=== PATIENT | male | born 1980 | race Caucasian/White ===

== ENCOUNTER → 2022-06-25 13:50 | Outpatient (BNVA) | payer MEDICAID, SELFPAY | PROVIDERS: Visit Provider Registered Nurse Neonatal Intensive Care | DX: R50.9 Fever, unspecified (principal) | CPT/HCPCS: 87400 ==

== ENCOUNTER → 2022-09-24 16:36 | Outpatient (BNVA) | payer MEDICAID, SELFPAY | PROVIDERS: Visit Provider Nurse Practitioner | DX: J02.9 Acute pharyngitis, unspecified (principal) | CPT/HCPCS: 87071; 87880 ==

== ENCOUNTER → 2022-10-10 08:16 | Outpatient (BNVA) | payer MEDICAID, SELFPAY | PROVIDERS: PCP Family Medicine Adult Medicine; Visit Provider Family Medicine Adult Medicine | DX: J06.9 Acute upper respiratory infection, unspecified (principal); Z80.42 Family history of malignant neoplasm of prostate; R05.8 Other specified cough | CPT/HCPCS: 80053; 85025; G0103 ==

== ENCOUNTER → 2023-01-30 13:44 | Outpatient (BNVA) | payer MEDICAID, SELFPAY | PROVIDERS: PCP Family Medicine Adult Medicine; Referring Provider Family Medicine Adult Medicine; Visit Provider Physician Assistant | DX: M47.816 Spondylosis without myelopathy or radiculopathy, lumbar region (principal) | CPT/HCPCS: 72110 ==

== ENCOUNTER 2023-05-21 10:26 | Outpatient (RCR) | payer OTHER, SELFPAY | END 2023-05-30 23:59 | disposition home or self-care (01) | LOC: SPT 10:26 | PROVIDERS: PCP Family Medicine Adult Medicine; Visit Provider Physician Assistant | DX: M54.30 Sciatica, unspecified side (principal) | CPT/HCPCS: 97162; 97530 ==

== ENCOUNTER → 2023-05-26 13:36 | Outpatient (BNVA) | payer OTHER, SELFPAY | PROVIDERS: PCP Family Medicine Adult Medicine; Visit Provider Emergency Medicine | DX: J02.9 Acute pharyngitis, unspecified (principal) | CPT/HCPCS: 87071; 87880 ==

== ENCOUNTER 2023-05-31 06:00 | Outpatient (RCR) | payer OTHER, SELFPAY | END 2023-06-30 23:59 | disposition home or self-care (01) | LOC: SPT 06:00 | PROVIDERS: PCP Family Medicine Adult Medicine; Visit Provider Physician Assistant | DX: M54.30 Sciatica, unspecified side (principal) | CPT/HCPCS: 97110 ==

== ENCOUNTER 2023-07-01 06:00 | Outpatient (RCR) | payer OTHER, SELFPAY | END 2023-07-10 23:59 | disposition home or self-care (01) | LOC: SPT 06:00 | PROVIDERS: PCP Family Medicine Adult Medicine; Visit Provider Physician Assistant | DX: M54.40 Lumbago with sciatica, unspecified side (principal) | CPT/HCPCS: 97110; 97530 ==

== ENCOUNTER 2023-08-03 09:25 | Emergency (ER) | payer OTHER, SELFPAY ==
[2023-08-03 09:41] VITALS: BP 134/105; PULSE 87; RESP 18; O2SAT 100
--- NOTE | 2023-08-03 10:24 | ED_ITS ---
HPI - Back Pain/Injury General: Chief Complaint: Back Pain/Injury Stated Complaint: lower back pain Time Seen by Provider: 08/03/23 09:49 History of Present Illness: 43-year-old male presents emergency depa rtment with chief complaint of progressive back pain and bulging disc disease. Patient reports he is only taken naproxen for his pain he reports he is scheduled for an MRI by his doctor on this upcoming Saturday, patient does not endorse any recent trauma or injury to his back he does endorse chronic sciatica but going down both his legs with some mild weakness and difficulty walking secondary to this. Patient reports that this been an ongoing issue the last 5 years in which about 5 years ago was recommended him to have surgical management that he elected not to at that time. Patient reports that he has been using a TENS unit in which today the pain has been increased more than normal, patient endorses that he has been on no other medications he reports no other associated recent trauma or injuries nor falls. Patient presents to the ER for further assessment and management Associated symptoms: Reports difficulty walking; Deny abdominal pain, chills, fatigue, fever(s), nausea or vomiting Review of Systems General: Reports: 10 or more systems reviewed and unremarkable except in HPI and below Const: Denies: fever(s), chills, fatigue or malaise Eyes: Denies: change in vision or blurry vision Card: Denies: chest pain or palpitations Resp: Denies: dyspnea or productive cough GI: Denies: abdominal pain, nausea or vomiting : Denies: flank pain Musc: Reports: back pain Skin/Breast: Denies: rash or pruritus Neuro: Reports: numbness in extremities, weakness in extremities and difficulty walking; Denies: headache(s) Psych: Denies: anxiety or depression Brain/Lymph: Denies: easy bleeding All/Imm: Denies: urticaria, throat swelling or facial swelling PFSH ED PFSH: Medical History Osteoarthritis involving multiple joints on both sides of body Lumbar disc disease History of skin cancer last skin survey 4-5 yrs ago Allergic rhinitis due to allergen Family history of skin cancer Family history of prostate cancer in father Nocturnal cough URI with cough and congestion Physical Exam Const: COMMON NORMALS: patient oriented x3 and healthy appearing; apparent distress (Patient appears to be in moderate distress due to pain and discomfort mild ) HENMT: COMMON NORMALS: normocephalic and atraumatic HEAD & SCALP: normocephalic and atraumatic Eye: COMMON NORMALS: Equal, round and reactive pupils present and EOMs intact bilaterally PUPIL: Yes Equal, round and reactive pupils present Neck/C-Spine: COMMON NORMALS: full ROM, supple and no JVD Lymph: LYMPHATIC: no lymphadenopathy noted Chest: COMMONS NORMALS: normal inspection of the chest and normal palpation of entire chest wall Resp: COMMON NORMALS: normal respiratory effort, No retractions and clear to auscultation bilaterally EFFORT & INSPECTION: Yes able to speak in complete sentences and Yes symmetric chest movement AUSCULTATION: clear to auscultation bilaterally Cardio: COMMON NORMALS: no JVD, regular rate and regular rhythm RATE: regular rate RHYTHM: regular rhythm GI: COMMON NORMALS: Normal to inspection, nondistended, normoactive bowel sounds present, Soft to palpation and non-tender INSPECTION: Yes normal to inspection PALPATION: Yes Soft to palpation : COMMON NORMALS: Yes no CVA tenderness BLADDER/KIDNEY EXAM: Yes no CVA tenderness Back/Pelvis: COMMON NORMALS: no CVA tenderness Extremity: COMMON NORMALS: normal to inspection and full ROM (Moderate pain with elevation of both legs patient has subjective numbness ) Neuro: COMMON NORMALS: patient oriented x3, CN's II-XII intact bilaterally, moves all extremities and no focal motor deficits Psych: COMMON NORMALS: mental status grossly normal, Normal thought process present, cooperative and normal affect THOUGHT PROCESS: Normal thought process present Skin: COMMON NORMALS: no rashes or lesions noted GENERAL SKIN EXAM: no rashes or lesions noted Course Vital Signs: Vital signs: Vital Signs Pulse Rate 87 08/03/23 09:41 Respiratory Rate 18 08/03/23 10:41 Blood Pressure 134/105 08/03/23 09:41 Pulse Oximetry 98 08/03/23 10:41 Oxygen Delivery Me thod Room Air 08/03/23 10:41 MDM - Back Pain/Injury Medical Decision Making Due to patient's symptoms and condition I spoke to the patient at length and we started him on some Neurontin Depo-Medrol as well as Toradol. Advised patient he will need prompt follow-up outpatient with his doctor which he already has his MRI scheduled I did advise the patient if he having new symptoms we could get additional imaging in the ER in which she has declined at this time will continue to follow. No radiology studies performed this visit Discharge Plan Discharge Patient Disposition: Home Clinical Impression: Lumbar stenosis with neurogenic claudication, Lumbar disc disease with radiculopathy, Sciatica associated with disorder of lumbar spine Condition: Stable Prescriptions: New prednisone 10 mg tablets,dose pack 10 mg PO DIRECTED Qty: 27 0RF Rx Instructions: take 4 tablets for 3 days, take 3 tablets for 3 days, take 2 tablets for 2 days and take 1 tablet for 2 days. methocarbamol 500 mg tablet 500 mg PO Q8H Qty: 20 0RF Lidoderm 5 % adhesive patch,medicated See Rx Instructions .ROUTE .COMPLEX Qty: 15 0RF Rx Instructions: leave on most painful area for up to 12 hrs Neurontin 300 mg capsule 300 mg PO BID Qty: 30 0RF No Action clarithromycin 500 mg tablet 500 mg PO BID 10 Days Qty: 20 0RF Discharge Orders: Discharge ED (Routine); Ordered 08/03/23 Ordered By: Raúl Rajan Referrals: Jean-Paul Armas MD [Primary Care Provider] - 1-3 days Discharge Activity: Increase activity as tolerated Patient Instructions: Sciatica (ED), Lumbar Radiculopathy (ED), Opioid Safety, Pain Management Activity Restrictions/Additional Instructions: Please further follow-up with your primary care doctor in 1 to 2 days, please take medications as prescribed in which please return in the interim if any of your symptoms persist or worse. Coding Level of Care Code ED Overlock Operator for Titi Deng
[2023-08-03] MEDS: methylPREDNISolone (DEPO) 80 MG/ML INJ 1 mL IM (10:31)
[2023-08-03] MEDS: gabapentin 300 mg Capsule PO (10:31)
[2023-08-03] MEDS: ketorolac 60 mg/2 mL INJ IM (10:32)
[2023-08-03 10:41] VITALS: RESP 18; O2SAT 98
[2023-08-03 11:49] VITALS: BP 134/105; PULSE 87; RESP 18; O2SAT 98
== END 2023-08-03 11:51 | disposition home or self-care (01) ==
PROVIDERS: Emergency Provider Emergency Medicine; PCP Family Medicine Adult Medicine
DX: M51.16 Intervertebral disc disorders with radiculopathy, lumbar region (principal); M48.062 Spinal stenosis, lumbar region with neurogenic claudication
CPT/HCPCS: 96372; 99284; J1040; J1885

== ENCOUNTER 2023-08-03 14:48 | Emergency (ER) | payer OTHER, SELFPAY ==
[2023-08-03 15:23] VITALS: BP 142/87; PULSE 84; RESP 18; TEMP 36.8; O2SAT 100
--- NOTE | 2023-08-03 18:03 | CTR_ITS ---
PROCEDURE INFORMATION: Exam: CT Lumbar Spine With Contrast Exam date and time: 08/03/2023 6:41 PM Age: 43 years old Clinical indication: Low back pain; Patient HX: Jim lower extremity numbness TECHNIQUE: Imaging protocol: Computed tomography of the lumbar spine with contrast. Radiation optimization: All CT scans at this facility use at least one of these dose optimization techniques: automated exposure control; mA and/or kV adjustment per patient size (includes targeted exams where dose is matched to clinical indication); or iterative reconstruction. Contrast material: OMNI 350; Contrast volume: 100 ml; Contrast route: INTRAVENOUS (IV); COMPARISON: MR lumbar spine wo con* [id number] 09/05/2018 7:34 AM RADIATION DOSE METRICS: Total DLP (mGy-cm): 906.06 FINDINGS: Bones/joints: No acute fracture. Normal alignment. No severe spinal canal stenosis. At L3-L4 there is mild bilateral neural foramina narrowing and compromise. At L4-L5 there is posterior disc bulging and narrowing of the left lateral recess with [id number] narrowing of the left neural foramina at this level. At L5-S1 there is moderate neural foramina narrowing and bilateral neural foramina compromise. In the left ilium there is a 1.2 centimeters hypodense lesion with sclerotic borders. Soft tissues: Normal soft tissues. CT/CT lumbar spine w con [id number] IMPRESSION: 1. Chronic multilevel neural foramina narrowing as described above. 2. Nonspecific 1.2 centimeter hypodense bone lesion with sclerotic borders. Close follow-up is recommended.
[2023-08-03 18:28] LABS: Basophils % 0.3 %; Eosinophils % 0.1 %; Erythrocyte Sedimentation Rate 7 mm/hr (0-10); Hematocrit 41.9 % (37-53); Lymphocytes # 0.7 10^3/uL (0.8-4.8); Mean Corpuscular HGB Conc 35.8 g/dL (30-55); Mean Corpuscular Hemoglobin 31.2 pg (27-33); Mean Corpuscular Volume 87.1 fl (82-101); Mean Platelet Volume 10.3 fL (7.4-10.4); Monocytes # 0.1 10^3/uL (0.2-0.9); Monocytes % 1.4 %; Neutrophils # 6.05 10^3/uL (1.8-7.7); Neutrophils % 87.8 %; Nucleated Red Blood Cells % 0 %; Platelet Count 197 10^3/cmm (157-399); Red Blood Count 4.81 10^6/uL (3.85-5.65); Red Cell Distribution Width 12.6 % (12.1-15.1)
[2023-08-03] MEDS: sodium chloride 0.9% 1,000 ML 999 ML IV (18:31)
[2023-08-03] MEDS: ondansetron 2 mg/ML SDV 2 mL 4 MG IVP (18:32)
[2023-08-03 18:33] VITALS: RESP 18; O2SAT 98
[2023-08-03] MEDS: HYDROmorphone 1 mg/mL INJ 1 mL IVP (18:33)
[2023-08-03] MEDS: iohexol 350 mg/mL 500 mL Btl (per mL) IV (18:44)
[2023-08-03 18:49] LABS: Alanine Aminotransferase 24 U/L (0-41); Albumin Level 4.4 g/dL (3.5-5.2); Alkaline Phosphatase 56 U/L (40-130); Anion Gap 15.3 (5-19); Aspartate Amino Transferase 19 U/L (0-40); Blood Urea Nitrogen 19 mg/dL (6-20); Calcium 9.5 mg/dL (8.5-10.5); Carbon Dioxide 23 mmol/L (22-29); Chloride 102 mmol/L (98-107); Globulin 3.3 g/dL (1.3-4.6); Glomerular Filtration Rate 92.5 mL/min (90-130); Glucose 121 mg/dL (65-115); Osmolality Calculated 286 mOsm/kg (285-295); Potassium 4.3 mmol/L (3.5-5.1); Sodium 136 mmol/L (136-145); Total Bilirubin 0.7 mg/dL (0.15-1.2); Total Protein 7.7 g/dL (6.6-8.7)
--- NOTE | 2023-08-03 20:18 | W.ED.BACK ---
HPI - Back Pain/Injury General: Chief Complaint: Back Pain/Injury Stated Complaint: back pain Time Seen by Provider: 08/03/23 15:05 History of Present Illness: 43-year-old male presents emergency department with increasing back pain patient was seen earlier this morning treated and provided gabapentin, corticosteroids and muscle relaxer at that time he was discharged. The patient states his pain is continued to worsen throughout the day he states he did call his orthopedic back surgeon Dr. Stokes and was advised to return to the emergency department. The patient states that he was lifting heavy boxes yesterday at his work at [email or web address] and feels like he exaggerated his chronic back pain. He is able to stand and ambulate. He states that he feels the medications that he took earlier starting to work but the pain is still a 9 out of 10. Review of Systems General: Reports: 10 or more systems reviewed and unremarkable except in HPI and below Musc: Reports: back pain [facility] ED PFSH: Medical History Osteoarthritis involving multiple joints on both sides of body Lumbar disc disease History of skin cancer last skin survey 4-5 yrs ago Allergic rhinitis due to allergen Family history of skin cancer Family history of prostate cancer in father Nocturnal cough URI with cough and congestion Physical Exam Narrative: EXAM NARRATIVE: Constitutional: the patient appears well nourished and with normal development. Vital signs reviewed as documented. HENMT: Normocephalic, atraumatic. External ears normal appearance without drainage. Nose without drainage, normal appearance. Mucus membranes moist. Neck is supple, No jugular venous distension, trachea is midline, no appreciable carotid bruits. No lymphadenopathy. No meningeal signs. Flexion, extension and lateral rotation is without pain. Eyes: Pupils are equal, round, reactive to light and accommodation. No scleral icterus. Extra-ocular movement are intact. Thorax is symmetrical and with equal rise and fall with respirations. Resp: Lungs are clear to auscultation. No wheezes, rales, crackles or ronchi at present. Cardio: Regular rate and rhythm. Positive S1, S2. No appreciable murmurs, rubs or gallops. GI: Abdominal exam reveals normal bowel sounds to all quadrants. No organomegaly. No obvious palpable masses noted. No hepatomegally appreciated. Soft, non-tender to palpation. Extremity: Extremities are non-edematous and both femoral and pedal pulses are 2+ and equal bilaterally. Moves all extremities well, sensation in all extremities. Neuro: Alert and oriented x4, person, place, time and situation. Cranial nerves II through XII are grossly intact, there is no focal neurological deficits that I can appreciate at present. Motor strength in the upper and lower extremities are equal and bilateral 5/5. Psych: Cooperative, calm, normal thought process, appropriate judgment. Skin: No lesions, rashes. No gross abnormalities noted. Back: Symmetrical, no obvious deformity, No CVA tenderness Course Vital Signs: Vital signs: Vital Signs Temperature 98.3 F 08/03/23 15:23 Pulse Rate 84 08/03/23 15:23 Respiratory Rate 18 08/03/23 18:33 Blood Pressure 142/87 08/03/23 15:23 Pulse Oximetry 98 08/03/23 18:33 Oxygen Delivery Me thod Room Air 08/03/23 15:23 MDM - Back Pain/Injury Medical Decision Making Physical exam completed and documented I will obtain a CBC and CMP as well as a CT scan with IV contrast. I have contacted Dr. Stokes the orthopedic spine surgeon and discussed with him the plan of care. I will Provide the patient with additional pain medication. Reevaluation after administration of the pain medication demonstrate significant improvement in control of the patient's pain. I did advise him to continue taking the previously prescribed medications and we will prescribe him hydrocodone for breakthrough pain. I did discuss with both the patient and the patient's the new CT scan findings of a sclerotic lesion on the left ilium. Additionally I did advise the patient and the patient's to discuss this new finding with his orthopedic spine surgeon to discuss the need for additional evaluation treatment and care. Medical Records I reviewed the patient's medical records. Labs I reviewed the patient's lab results. 08/03/23 18:21 08/03/23 18:21 Radiology Impressions Lumbar Spine CT 08/03/23 18:03 IMPRESSION: 1. Chronic multilevel neural foramina narrowing as described above. 2. Nonspecific 1.2 centimeter hypodense bone lesion with sclerotic borders. Close follow-up is recommended. Laboratory Results WBC 6.90 10^3/uL (3.29-11.43) 08/03/23 18:21 RBC 4.81 10^6/uL (3.85-5.65) 08/03/23 18:21 Hgb 15.00 g/dL (11.27-16.99) 08/03/23 18:21 Hct 41.9 % (37-53) 08/03/23 18:21 MCV 87.1 fl (82-101) 08/03/23 18:21 MCH 31.2 pg (27-33) 08/03/23 18: MCHC 35.8 g/dL (30-55) 08/03/23 18:21 RDW 12.6 % (12.1-15.1) 08/03/23 18:21 Plt Count 197 10^3/cmm (157-399) 08/03/23 18:21 MPV 10.3 fL (7.4-10.4) 08/03/23 18:21 Neut % (Auto) 87.8 % 08/03/23 18:21 Lymph % (Auto) 10.0 % 08/03/23 18:21 [place] % (Auto) 1.4 % 08/03/23 18:21 Eos % (Auto) 0.1 % 08/03/23 18:21 Baso % (Auto) 0.3 % 08/03/23 18:21 Neut # (Auto) 6.05 10^3/uL (1.8-7.7) 08/03/23 18: Lymph # (Auto) 0.7 10^3/uL (0.8-4.8) L 08/03/23 18:21 [place] # (Auto) 0.1 10^3/uL (0.2-0.9) L 08/03/23 18:21 Eos # (Auto) 0.0 10^3/uL (0.0-0.8) 08/03/23 18:21 Baso # (Auto) 0.0 10^3/uL (0.0-0.1) 08/03/23 18:21 Nucleated RBC % (auto) 0 % 08/03/23 18: Nucleated RBCs # 0.0 /100WBC 08/03/23 18:21 ESR 7 mm/hr (0-10) 08/03/23 18:21 Sodium 136 mmol/L (136-145) 08/03/23 18:21 Potassium 4.3 mmol/L (3.5-5.1) 08/03/23 18:21 Chloride 102 mmol/L (98-107) 08/03/23 18:21 Carbon Dioxide 23 mmol/L (22-29) 08/03/23 18:21 Anion Gap 15.3 (5-19) 08/03/23 18:21 BUN 19 mg/dL (6-20) 08/03/23 18:21 Creatinine 0.9 mg/dL (0.7-1.2) 08/03/23 18:21 GFR Calculation 92.5 mL/min (90-130) 08/03/23 18:21 Glucose 121 mg/dL (65-115) H 08/03/23 18:21 Calculated Osmolality 286 mOsm/kg (285-295) 08/03/23 18:21 Calcium 9.5 mg/dL (8.5-10.5) 08/03/23 18:21 Total Bilirubin 0.7 mg/dL (0.15-1.2) 08/03/23 18:21 AST 19 U/L (0-40) 08/03/23 18:21 ALT 24 U/L (0-41) 08/03/23 18:21 Alkaline Phosphatase 56 U/L (40-130) 08/03/23 18:21 C-Reactive Protein 3.0 mg/L (0.0-4.9) 08/03/23 18:21 Total Protein 7.7 g/dL (6.6-8.7) 08/03/23 18:21 Albumin 4.4 g/dL (3.5-5.2) 08/03/23 18:21 Globulin 3.3 g/dL (1.3-4.6) 08/03/23 18:21 All radiology interpretation(s) finalized by discharge Discharge Plan Discharge Patient Disposition: Home Clinical Impression: Acute exacerbation of chronic low back pain Condition: Stable Prescriptions: New hydrocodone-acetaminophen 10-325 mg tablet 1 tab PO Q6H PRN (Reason: pain) Qty: 21 0RF hydrocodone-acetaminophen 10-325 mg tablet 1 tab PO Q6H PRN (Reason: pain) Qty: 21 0RF No Action clarithromycin 500 mg tablet 500 mg PO BID 10 Days Qty: 20 0RF prednisone 10 mg tablets,dose pack 10 mg PO DIRECTED Qty: 27 0RF Rx Instructions: take 4 tablets for 3 days, take 3 tablets for 3 days, take 2 tablets for 2 days and take 1 tablet for 2 days. methocarbamol 500 mg tablet 500 mg PO Q8H Qty: 20 0RF Lidoderm 5 % adhesive patch,medicated See Rx Instructions .ROUTE .COMPLEX Qty: 15 0RF Rx Instructions: leave on most painful area for up to 12 hrs Neurontin 300 mg capsule 300 mg PO BID Qty: 30 0RF Discharge Orders: Discharge ED (Routine); Ordered 08/03/23 Ordered By: Jj Veloz Referrals: Jean-Paul Armas MD [Primary Care Provider] - Discharge Diet: Advance as tolerated Discharge Activity: Return to work/school after cleared by PCP/Specialist Patient Instructions: Opioid Safety, Pain Management Activity Restrictions/Additional Instructions: Activity Restrictions/Additional Instructions: Thank you for choosing [facility] for your healthcare needs today. Please realize that you were seen in the Emergency Department and that we are providing you with an emergency medical screening exam and this may not be a complete and all inclusive of all the testing and or medical work-up that you may need to determine your ailment or severity of your illness. It is very important that you follow-up as instructed with your Primary care provider or Specialist for additional evaluation and to discuss your medical treatment plan. You may return to the Emergency Department should you have concerns or if your condition changes or worsens in any way. Please excuse Mr. Varela from any work duties until August 08, 2023. Stand Alone Forms: Work/School Release Coding Level of Care Code ED Varnisher Plasticoater for Titi Deng
[2023-08-03] MEDS: HYDROcodone-acetaminophen 10-325 mg Tablet 2 TAB PO (21:28)
== END 2023-08-03 20:42 | disposition home or self-care (01) ==
PROVIDERS: Emergency Provider Internal Medicine; PCP Family Medicine Adult Medicine
DX: G89.29 Other chronic pain (principal); M54.50 Low back pain, unspecified
CPT/HCPCS: 72132; 80053; 85025; 85651; 86140; 96374; 96375; 99285; J1170; J2405; J7030; Q9967

== ENCOUNTER 2023-08-06 07:59 | Outpatient (CLI) | payer OTHER, SELFPAY ==
--- NOTE | 2023-08-06 08:00 | MR_ITS ---
WS: [id number] MRI LUMBAR SPINE NONCONTRAST HISTORY: back pain COMPARISON: 09/05/2018, CT 08/03/2023 TECHNIQUE: Sagittal and axial multisequence imaging is submitted. Straightening and slight reversal of the normal cervical lordosis. Mild posterior displacement of the cervical cord at C5-6. Mild straightening of the normal lumbar lordosis. Disc space narrowing and desiccation is mild at L4- 5 and L5-S1 similar to the prior CT and MRI. No fractures or marrow edema. Disc spaces and vertebral body heights are well-preserved. Conus terminates normally at L1. L1-L2: Normal. L2-L3: Minimal facet joint arthritis. No stenosis. L3-L4: Very minimal annular disc bulging contacting the traversing L4 nerve roots. Mild bilateral fac et joint arthritis with minimal progression since 2019. Very minimal foraminal narrowing. L4-L5: Mild annular disc bulging with a shallow central disc protrusion contacting and deforming the ventral thecal sac. Disc protrusion contacts and slightly displaces the traversing L5 nerve roots. Ve ry similar to the prior exam. Mild central and bilateral subarticular recess stenosis. Mild bilateral facet arthritis. Mild bilateral foraminal stenosis. L5-S1: Diffuse annular disc bulging with a broad-based central disc protrusion contacting and deformi ng the ventral thecal sac. This central disc protrusion has progressed since the prior study. Continu ed but progressive contact on the traversing S1 nerve roots, RIGHT greater than LEFT. Mild central wi th moderate bilateral subarticular recess stenosis. Mild foraminal stenosis. Paravertebral soft tissues are normal. IMPRESSION: 1. No acute lumbar spine fracture. 2. L4-5: Central disc protrusion contacts and displacing the traversing L5 nerve roots. Mild central , bilateral subarticular recess and foraminal stenosis with facet arthritis. Similar to the prior flaca dy. 3. L5-S1: Broad-based central disc protrusion is increased in size since the prior study. Slightly g reater contact on the traversing S1 nerve roots, RIGHT greater than LEFT. Mild central with moderate bilateral subarticular recess stenosis and mild foraminal stenosis. 4. L3-4: Minimal disc bulge contacting the traversing L4 nerve roots.
== END 2023-08-06 08:00 | disposition home or self-care (01) ==
LOC: RAD 07:59
PROVIDERS: PCP Family Medicine Adult Medicine; Visit Provider Orthopaedic Surgery
DX: M51.16 Intervertebral disc disorders with radiculopathy, lumbar region (principal); M51.17 Intervertebral disc disorders with radiculopathy, lumbosacral region; G89.29 Other chronic pain
CPT/HCPCS: 72148

== ENCOUNTER 2023-08-15 18:38 | Emergency (ER) | payer OTHER, SELFPAY ==
[2023-08-15 18:50] VITALS: BP 135/88; PULSE 100; RESP 18; TEMP 36.3; O2SAT 100
--- NOTE | 2023-08-15 18:52 | PC.NURSE ---
pt placed on bedside behavioral sciences department chair
--- NOTE | 2023-08-15 19:00 | CTR_ITS ---
PROCEDURE INFORMATION: Exam: CT Head Without Contrast Exam date and time: 08/15/2023 7:20 PM Age: 43 years old Clinical indication: Injury or trauma; Fall; Blunt trauma (contusions or hematomas) TECHNIQUE: Imaging protocol: Computed tomography of the head without contrast. Radiation optimization: All CT scans at this facility use at least one of these dose optimization techniques: automated exposure control; mA and/or kV adjustment per patient size (includes targeted exams where dose is matched to clinical indication); or iterative reconstruction. COMPARISON: No relevant prior studies available. RADIATION DOSE METRICS: Total DLP (mGy-cm): 1106 FINDINGS: Brain: Normal. No hemorrhage. Unremarkable white matter. No mass effect. Cerebral ventricles: No ventriculomegaly. Paranasal sinuses: Visualized sinuses are unremarkable. No fluid levels. Mastoid air cells: Visualized mastoid air cells are well aerated. Bones/joints: Unremarkable. No acute fracture. Soft tissues: Unremarkable. CT/CT head wo con* [id number] IMPRESSION: No acute intracranial abnormality.
--- NOTE | 2023-08-15 19:00 | W.ED.GENADLT ---
HPI - General Adult General: Chief complaint: Syncope Stated complaint: passing out spells Time Seen by Provider: 08/15/23 18:50 History of Present Illness: 43-year-old male patient comes in with concerns of 2 episodes of loss of consciousness. Patient reports this morning at about 1:00 he passed out/fell asleep for short period where he lost track of time. Then this afternoon at about 530 he was at a friend's house and had drink a couple of beers and then passed out when he stood up. Patient recently had been under treatment for back pain and had just finished gabapentin on Saturday. Patient takes no routine medications. Besides his chronic back problems patient is healthy. Patient does use alcohol occasionally. Patient did use some marijuana today while at his friend's house. Patient is also been having some poor sleep last 2 days. Patient appears nontoxic. Patient is alert and acting appropriate. Review of Systems General: Reports: 10 or more systems reviewed and unremarkable except in HPI and below PFSH ED PFSH: Medical History Osteoarthritis involving multiple joints on both sides of body Lumbar disc disease History of skin cancer last skin survey 4-5 yrs ago Allergic rhinitis due to allergen Family history of skin cancer Family history of prostate cancer in father Nocturnal cough URI with cough and congestion Physical Exam Const: COMMON NORMALS: alert HENMT: COMMON NORMALS: normocephalic HEAD & SCALP: normocephalic Neck/C-Spine: COMMON NORMALS: full ROM Resp: COMMON NORMALS: normal respiratory effort and clear to auscultation bilaterally AUSCULTATION: clear to auscultation bilaterally Cardio: COMMON NORMALS: regular rate and regular rhythm RATE: regular rate RHYTHM: regular rhythm GI: COMMON NORMALS: Soft to palpation and non-tender PALPATION: Yes Soft to palpation : COMMON NORMALS: Yes no CVA tenderness BLADDER/KIDNEY EXAM: Yes no CVA tenderness Back/Pelvis: COMMON NORMALS: no CVA tenderness Extremity: COMMON NORMALS: normal to inspection and full ROM Neuro: SENSORIUM/ORIENTATION: Yes alert Psych: COMMON NORMALS: cooperative Skin: COMMON NORMALS: turgor normal GENERAL SKIN EXAM: turgor normal Course Vital Signs: Vital signs: Vital Signs Temperature 97.4 F L 08/15/23 18:50 Pulse Rate 78 08/15/23 20:08 Respiratory Rate 16 08/15/23 20:08 Blood Pressure 134/84 08/15/23 20:08 Pulse Oximetry 100 08/15/23 20:08 Oxygen Delivery Me thod Room Air 08/15/23 20:08 MDM - General Adult Medical Decision Making Patient was brought in by spouse for concerns of passing out. Patient appears nontoxic. Skin is warm and dry color is pink. Vital signs are stable. Differential diagnosis includes but not limited to alcohol intoxication, dehydration, arrhythmia, adverse drug effect. CBC was normal. CMP was normal. Troponin was in normal range. CT of the head showed no intracranial bleeding or abnormality. Orthostatic blood pressure was unremarkable. Patient's EtOH level was 107. Patient's anion gap was 19. EKG showed no elevation in ST segment or ectopy. Patient was given 1 L of IV fluids which help with some of his symptoms. Reviewed exam with patient recommended follow-up with cardiology for possible Holter monitor and further evaluation to rule out underlying arrhythmia. Patient and family both reported understanding and agreed to plan. Lab Data 08/15/23 19:06 08/15/23 19:[address] 08/15/23 19:00 IMPRESSION: No acute intracranial abnormality. Laboratory Results WBC 7.26 10^3/uL (3.29-11.43) 08/15/23 19:06 RBC 5.01 10^6/uL (3.85-5.65) 08/15/23 19:06 Hgb 15.40 g/dL (11.27-16.99) 08/15/23 19:06 Hct 45.6 % (37-53) 08/15/23 19:06 MCV 91.0 fl (82-101) 08/15/23 19:06 MCH 30.7 pg (27-33) 08/15/23 19:06 MCHC 33.8 g/dL (30-55) 08/15/23 19:06 RDW 13.0 % (12.1-15.1) 08/15/23 19:06 Plt Count 200 10^3/cmm (157-399) 08/15/23 19:06 MPV 10.1 fL (7.4-10.4) 08/15/23 19:06 Neut % (Auto) 60.0 % 08/15/23 19:06 Lymph % (Auto) 28.4 % 08/15/23 19:06 [place] % (Auto) 6.5 % 08/15/23 19:06 Eos % (Auto) 4.1 % 08/15/23 19:06 Baso % (Auto) 0.7 % 08/15/23 19:06 Neut # (Auto) 4.36 10^3/uL (1.8-7.7) 08/15/23 19:06 Lymph # (Auto) 2.1 10^3/uL (0.8-4.8) 08/15/23 19:06 [place] # (Auto) 0.5 10^3/uL (0.2-0.9) 08/15/23 19:06 Eos # (Auto) 0.3 10^3/uL (0.0-0.8) 08/15/23 19:06 Baso # (Auto) 0.1 10^3/uL (0.0-0.1) 08/15/23 19:06 Nucleated RBC % (auto) 0 % 08/15/23 19:06 Nucleated RBCs # 0.0 /100WBC 08/15/23 19:06 Sodium 137 mmol/L (136-145) 08/15/23 19:06 Sodium Cancelled 08/15/23 19:06 Potassium 3.9 mmol/L (3.5-5.1) 08/15/23 19:06 Potassium Cancelled 08/15/23 19:06 Chloride 98 mmol/L (98-107) 08/15/23 19:06 Chloride Cancelled 08/15/23 19:06 Carbon Dioxide 23 mmol/L (22-29) 08/15/23 19:06 Carbon Dioxide Cancelled 08/15/23 19:06 Anion Gap 19.9 (5-19) H 08/15/23 19:06 Anion Gap Cancelled 08/15/23 19:06 BUN 12 mg/dL (6-20) 08/15/23 19:06 BUN Cancelled 08/15/23 19:06 Creatinine 0.9 mg/dL (0.7-1.2) 08/15/23 19:06 Creatinine Cancelled 08/15/23 19:06 GFR Calculation 92.5 mL/min (90-130) 08/15/23 19:06 GFR Calculation Cancelled 08/15/23 19:06 Glucose 107 mg/dL (65-115) 08/15/23 19:06 Glucose Cancelled 08/15/23 19:06 Calculated Osmolality 284 mOsm/kg (285-295) L 08/15/23 19:06 Calculated Osmolality Cancelled 08/15/23 19:06 Calcium 9.1 mg/dL (8.5-10.5) 08/15/23 19:06 Calcium Cancelled 08/15/23 19:06 Total Bilirubin 0.5 mg/dL (0.15-1.2) 08/15/23 19:06 Total Bilirubin Cancelled 08/15/23 19:06 AST 24 U/L (0-40) 08/15/23 19:06 AST Cancelled 08/15/23 19:06 ALT 26 U/L (0-41) 08/15/23 19:06 ALT Cancelled 08/15/23 19:06 Alkaline Phosphatase 53 U/L (40-130) 08/15/23 19:06 Alkaline Phosphatase Cancelled 08/15/23 19:06 Troponin T Baseline 7 ng/L (0-15) 08/15/23 19:06 Total Protein 8.1 g/dL (6.6-8.7) 08/15/23 19:06 Total Protein Cancelled 08/15/23 19:06 Albumin 4.5 g/dL (3.5-5.2) 08/15/23 19:06 Albumin Cancelled 08/15/23 19:06 Globulin 3.6 g/dL (1.3-4.6) 08/15/23 19:06 Globulin Cancelled 08/15/23 19:06 Urine Color Yellow (Yellow) 08/15/23 20:37 Urine Appearance Clear (CLEAR) 08/15/23 20:37 Urine pH 5 (5-7) 08/15/23 20:37 Ur Specific [place] 1.010 (1.005-1.030) 08/15/23 20:37 Urine Protein Neg (Negative) 08/15/23 20:37 Urine Glucose (UA) Norm (Normal) 08/15/23 20:37 Urine Ketones Negative (Negative) 08/15/23 20:37 Urine Blood Neg (Negative) 08/15/23 20:37 Urine Nitrate Negative (Negative) 08/15/23 20:37 Urine Bilirubin Neg (Negative) 08/15/23 20:37 Urine Urobilinogen Norm mg/dL (Negative) 08/15/23 20:37 Ur Leukocyte Esterase Negative (Negative) 08/15/23 20:37 Urine Opiates Screen Negative ng/mL (Negative) 08/15/23 20:37 Ur Barbiturates Screen Negative ng/mL (Negative) 08/15/23 20:37 Ur Phencyclidine Scrn Negative ng/mL (Negative) 08/15/23 20:37 Ur Amphetamines Screen Negative ng/mL (Negative) 08/15/23 20:37 U Benzodiazepines Scrn Negative ng/mL (Negative) 08/15/23 20:37 Urine Cocaine Screen Negative ng/mL (Negative) 08/15/23 20:37 U Marijuana (THC) Screen Negative ng/mL (Negative) 08/15/23 20:37 Ethyl Alcohol 107 mg/dL (0-10) H 08/15/23 19:06 Ethyl Alcohol Cancelled 08/15/23 19:06 All radiology interpretation(s) finalized by discharge EKG Data EKG 1: I personally reviewed and interpreted this EKG as follows: EKG interpretation date: 08/15/23 EKG interpretation time: 19:12 Prior EKG tracings: not available for review Interpretation: EKG shows a sinus rhythm with a regular rate at [address] elevation or ectopy is noted. No prior exam was available for comparison. Dr. Hillman reviewed EKG with me. Computer generated interpretation: Head CT 08/15/23 19:00 IMPRESSION: No acute intracranial abnormality. Sinus rhythm, possible inferior myocardial infarction, abnormal EKG, unconfirmed report. Discharge Plan Discharge Patient Disposition: Home Clinical Impression: Vasovagal syncope, Dehydration, Alcohol intoxication in episodic drinker Condition: Stable Prescriptions: No Action clarithromycin 500 mg tablet 500 mg PO BID 10 Days Qty: 20 0RF prednisone 10 mg tablets,dose pack 10 mg PO DIRECTED Qty: 27 0RF Rx Instructions: take 4 tablets for 3 days, take 3 tablets for 3 days, take 2 tablets for 2 days and take 1 tablet for 2 days. methocarbamol 500 mg tablet 500 mg PO Q8H Qty: 20 0RF Lidoderm 5 % adhesive patch,medicated See Rx Instructions .ROUTE .COMPLEX Qty: 15 0RF Rx Instructions: leave on most painful area for up to 12 hrs Neurontin 300 mg capsule 300 mg PO BID Qty: 30 0RF hydrocodone-acetaminophen 10-325 mg tablet 1 tab PO Q6H PRN (Reason: pain) Qty: 21 0RF hydrocodone-acetaminophen 10-325 mg tablet 1 tab PO Q6H PRN (Reason: pain) Qty: 21 0RF Discharge Orders: Discharge ED (Routine); Ordered 08/15/23 Ordered By: Pito Basilio Referrals: Jean-Paul Armas MD [Primary Care Provider] - Discharge Diet: Usual diet Discharge Activity: Increase activity as tolerated Patient Instructions: Syncope (ED) Activity Restrictions/Additional Instructions: Home and rest. Drink plenty of water and fluids. Use acetaminophen or ibuprofen for pain. Activity as tolerated. Change positions slowly. Follow-up with primary care. Return to ED for worsening symptoms such as increased shortness of breath, chest pain, or new concerns. Case management will contact you regarding follow-up with advertising operations coordinator for further evaluation and treatment. Coding Level of Care Code ED Side Trimmer for Titi Deng
--- NOTE | 2023-08-15 19:09 | ECG_ITS ---
[facility] Test Date: 2023-08-15 Pat Name: Cuauhtemoc Varela Department: Room: Gender: Male Resource Protection Specialist: : 1980 Requested By: Pito Duncan Order Number: [id number] Declan MD: Gerber Patel M.D. Measurements Intervals [place] Rate: 74 P: 4 WA: 164 QRS: 63 QRSD: 114 T: 35 QT: 367 QTc: 408 Interpretive Statements SINUS RHYTHM POSSIBLE INFERIOR MYOCARDIAL INFARCTION , OF INDETERMINATE AGE [30 ms Q WAVE IN II/aVF] No previous ECG available for comparison Electronically Signed On 08-16-2023 10:02:39 OCEANOLOGY TEACHER by Gerber Patel M.D. [id number]
[2023-08-15 19:11] VITALS: BP 131/87; BP 134/91; BP 137/89; PULSE 77; PULSE 83; PULSE 93
[2023-08-15] MEDS: sodium chloride 0.9% 1,000 ML 999 ML IV (19:13)
[2023-08-15 19:21] LABS: Basophils # 0.1 10^3/uL (0.0-0.1); Basophils % 0.7 %; Eosinophils # 0.3 10^3/uL (0.0-0.8); Eosinophils % 4.1 %; Hematocrit 45.6 % (37-53); Lymphocytes # 2.1 10^3/uL (0.8-4.8); Lymphocytes % 28.4 %; Mean Corpuscular HGB Conc 33.8 g/dL (30-55); Mean Corpuscular Hemoglobin 30.7 pg (27-33); Mean Platelet Volume 10.1 fL (7.4-10.4); Monocytes # 0.5 10^3/uL (0.2-0.9); Monocytes % 6.5 %; Neutrophils # 4.36 10^3/uL (1.8-7.7); Nucleated Red Blood Cells % 0 %; Platelet Count 200 10^3/cmm (157-399); Red Blood Count 5.01 10^6/uL (3.85-5.65); White Blood Count 7.26 10^3/uL (3.29-11.43)
[2023-08-15 19:40] VITALS: BP 138/99; PULSE 79; RESP 18; O2SAT 99
[2023-08-15 20:08] VITALS: BP 134/84; PULSE 78; RESP 16; O2SAT 100
--- NOTE | 2023-08-15 20:08 | PC.NURSE ---
reiterated the need for pt to give urine sample, states does not feel urge
[2023-08-15 20:34] LABS: Alanine Aminotransferase 26 U/L (0-41); Albumin Level 4.5 g/dL (3.5-5.2); Alcohol Level 107 mg/dL (0-10); Alkaline Phosphatase 53 U/L (40-130); Anion Gap 19.9 (5-19); Aspartate Amino Transferase 24 U/L (0-40); Blood Urea Nitrogen 12 mg/dL (6-20); Calcium 9.1 mg/dL (8.5-10.5); Carbon Dioxide 23 mmol/L (22-29); Chloride 98 mmol/L (98-107); Globulin 3.6 g/dL (1.3-4.6); Glomerular Filtration Rate 92.5 mL/min (90-130); Glucose 107 mg/dL (65-115); Osmolality Calculated 284 mOsm/kg (285-295); Potassium 3.9 mmol/L (3.5-5.1); Sodium 137 mmol/L (136-145); Total Bilirubin 0.5 mg/dL (0.15-1.2); Total Protein 8.1 g/dL (6.6-8.7)
[2023-08-15 20:38] LABS: Troponin(5th) Baseline 7 ng/L (0-15)
[2023-08-15 20:43] LABS: Add Urine Microscopic? NO; Charge for UA Resulting for Rev
[2023-08-15 20:53] LABS: Amphetamines Screen Urine Negative (Negative); Barbiturates Screen Urine Negative (Negative); Benzodiazepines Screen Urine Negative (Negative); Cocaine Screen Urine Negative (Negative); Opiate Screen Urine Negative (Negative); PCP Screen Urine Negative (Negative); THC Screen Urine Negative (Negative)
[2023-08-15 20:54] LABS: Bilirubin Urine Neg (Negative); Blood Urine Neg (Negative); Glucose Urine UA Norm (Normal); Ketones Urine Negative (Negative); Leukocyte Esterase Urine Negative (Negative); Nitrate Urine Negative (Negative); Protein Urine Neg (Negative); Urine Appearance Clear (CLEAR); Urine Color Yellow (Yellow); Urobilinogen Urine Norm (Negative); pH Urine 5 (5-7)
--- NOTE | 2023-08-16 01:28 | DCPLANNER ---
Message sent to cardiology for further evaluation- Syncopal episode.
== END 2023-08-15 21:06 | disposition home or self-care (01) ==
PROVIDERS: Emergency Provider Nurse Practitioner Family; PCP Family Medicine Adult Medicine
DX: R55 Syncope and collapse (principal); E86.0 Dehydration; F10.129 Alcohol abuse with intoxication, unspecified; Y90.5 Blood alcohol level of 100-119 mg/100 ml
CPT/HCPCS: 70450; 80053; 80306; 80307; 81003; 84484; 85025; 93005; 96360; 96361; 99285; J7030

== ENCOUNTER → 2023-11-05 14:48 | Outpatient (BNVA) | payer MEDICAID, SELFPAY | PROVIDERS: PCP Family Medicine Adult Medicine; Visit Provider Orthopaedic Surgery | DX: M51.9 Unspecified thoracic, thoracolumbar and lumbosacral intervertebral disc disorder (principal); M48.062 Spinal stenosis, lumbar region with neurogenic claudication | CPT/HCPCS: 36415; 72110; 80053; 81003; 85025; 99214 ==

== ENCOUNTER 2023-12-11 17:09 | Inpatient (IN) | payer BC, MEDICAID, SELFPAY ==
[2023-12-11] VITALS (15 sets, daily range): BP systolic 105–150; BP diastolic 62–95; PULSE 76–98; RESP 12–26; TEMP 36.4–36.9; O2SAT 93–98; BMI 27.6
[2023-12-11] MEDS: sodium chloride 0.9% 1,000 ML 30 ML IV (12:19)
[2023-12-11] MEDS: methadone 10 mg Tablet PO (12:26)
--- NOTE | 2023-12-11 12:51 | W.PM.OPSUD ---
Surgery/Procedure H&P Update DATE OF PROCEDURE: December 11, 2023 DATE H&P PERFORMED: 11/19/23 H&P UPDATE INFORMATION: I have reviewed H&P completed within last 30 days, I have examined patient prior to procedure and No changes to prior documentation PREOP DIAGNOSIS: Lumbar stenosis with neurogenic claudication PLANNED PROCEDURE: Operation Date: 12/11/23 13:10 Proposed Procedures p Posterior Lumbar Interbody Fusion PLIF(Not Applicable) - aKmeron Stokes DO
[2023-12-11] MEDS: clindamycin 600 MG/50 ML PREMIX 100 MG IV ×2 (13:23→21:32)
--- NOTE | 2023-12-11 13:25 | ANES.PREANE2 ---
Pre-Anesthetic Assessment Height/Weight: Height 1.88 m Weight 97.522 kg Temp Pulse Resp BP Pulse Ox O2 Del Method 97.6 F 85 16 139/95 97 Room Air 12/11/23 12:05 12/11/23 12:05 12/11/23 12:26 12/11/23 12:05 12/11/23 12:05 12/11/23 12:05 Preop Diagnosis: Lumbar stenosis with neurogenic claudication Operation Date: 12/11/23 13:10 Proposed Procedures p Posterior Lumbar Interbody Fusion PLIF(Not Applicable) - Kameron Stokes, DO Familial anesthetic complications: none Was Beta Cindy taken within 24 hours: N/A Was Clonidine taken within 24 hours: N/A Last intake: Intake Last Liquid Date 12/10/23 Last Liquid Time 21:30 Last Solid Date 12/10/23 Last Solid Time 20:00 Social No alcohol and No tobacco Exam alert, oriented x 3, clear to auscultation bilaterally and regular rate & rhythm Airway Submandibular: within normal limits Cervical ROM: within normal limits Mallampati: Class II Dentition: full GI Gastroesophageal Reflux Disease Musc/skel Lower Back Pain and Osteoarthritis/DJD Anesthetic Plan ASA status: 2 Anesthesia: General Medications/Allergies Home Medications Medication Instructions Recorded Confirmed Last Taken Type cetirizine 10 mg tablet (Zyrtec) 10 mg PO DAILY PRN Allergic 11/19/23 12/11/23 Unknown History Symptoms omeprazole 20 mg tablet,delayed 20 mg PO DAILY 11/19/23 12/11/23 Unknown History release Bone Growth Stimulator #1 ea 12/06/23 Unknown Rx Allergies Allergy/AdvReac Type Severity Reaction Status Date / Time amoxicillin [From Augmentin] Allergy anaphylacti Verified 12/10/23 13:52 c clavulanic acid Allergy anaphylacti Verified 12/10/23 13:52 [From Augmentin] c gabapentin AdvReac ADR-Seizure Verified 12/11/23 12:04 Current Medications Generic Name Dose Route Start Last Admin Trade Name Freq PRN Reason Stop Dose Admin Sodium Chloride 1,000 mls @ 30 mls/hr 12/11/23 12:00 12/11/23 12:19 Sodium Chloride 0.9% IV 12/12/23 11:59 30 mls/hr .Q24H MEHUL Administration PFSH Anesthesia Medical History Osteoarthritis involving multiple joints on both sides of body Lumbar disc disease History of skin cancer last skin survey 4-5 yrs ago Allergic rhinitis due to allergen Family history of skin cancer Family history of prostate cancer in father Nocturnal cough URI with cough and congestion Data Anesthesia Blood Bank 12/11/23 12:20 Blood Type A Positive Rho(D) Type Rh positive Cardiac Studies: No Data to Display
[2023-12-11] MEDS: lidocaine-epi 1% 20 mL INJ INJECTION (13:55)
[2023-12-11] MEDS: heparin, porcine 1,000 unit/mL INJ 10 mL 10000 UNIT IRRIGATION (15:00)
[2023-12-11] MEDS: vancomycin 1,000 MG SDV 1000 MG XX (15:05)
--- NOTE | 2023-12-11 16:34 | XR_ITS ---
WS: [id number] INTRAOPERATIVE TECHNIQUE: 2 Spot fluoroscopic images for intraoperative purposes. FLUOROSCOPY TIME: 22 seconds CLINICAL INFORMATION: LUMBAR FUSION FINDINGS: Intraoperative pedicle screw fixation L4-S1 with interbody fusion grafts. Hardware appears in good po sition. XR/XR lumbar spine 2-3V* [id number] IMPRESSION: Images obtained for intraoperative purposes.
--- NOTE | 2023-12-11 16:57 | P.OP_ITS ---
Operative Report Date of procedure: December 11, 2023 Surgeon: Kameron Stokes DO Procedure: 1. L5/S1 Interbody fusion wposterolateral fusion 2. L4/5 Interbody fusion with posterolateral fusion 3. Instrumentation L4-S1 4. Cage at L4/5 5. Cage L5/S1 6. L5-S1 laminectomy with facetectomy for purpose of decompressing nerve 7. L4-5 laminectomy with facetectomy for purpose of decompressing nerve 8. use of autograft from same incision 9. allograft 10. Bone marrow aspirate from right iliac crest 11. Use of computer navigation / stereotactic for spine Patient is brought to the operative suite. After undergoing anesthesia, the patient had neuro monitoring attached. Patient was then placed in the prone position on the [place] table. All areas of impingement were well-padded. Patient was then prepped and draped in the normal sterile fashion. Skin incision was then made from L4-S1. Subperiosteal dissection was made out to the transverse processes of L4 bilaterally, L5 bilaterally and S1 ala bilaterally. Attention was then brought to the [employer] bone marrow aspirate kit was used to aspirate bone marrow aspirate. This was done by using the sharp probe to open up the bone. Aspiration was performed and then the blunt probe was then used to dissect down to through the bone tunnel. An aspirating well drawn back a millimeter approximately 20 cc of bone marrow aspirate was used. Admixed with the allograft and autograft bone that will be used. Patient is brought to present to pins in the right iliac crest. These pins were removed at the end the case. This is where the fiducial was attached with computer navigation. The computer navigation was attached and the serial torri and spun on the patient information from the C-arm was then loaded the computer for the use of computer navigation for pedicle screws. The technique for placing the pedicle screws was to use a drill followed by the gearshift probe linked to computer navigation. Followed by the ball probe to feel the superior inferior medial lateral dumont of the pedicles. Then placement of the screws using computer navigation. Was done at each pedicle. Screws were placed at L4 bilaterally, L5 bilaterally and S1 bilaterally. Next attention was brought to performing the laminectomy ofL5. This was done using the high-speed bur Kerrisons and curettes. Once the lamina was removed and then attention was brought to performing a partial facetectomy on the contralateral side. This was done again using the high-speed bur curettes and Kerrisons. The ligamentum flavum was taken down bilaterally from L5 to S1. Attention was then brought to the facet on the ipsilateral side. The facet was taken down. The S1 nerve was decompressed as it passed around the S1 pedicle. The laminectomy was done for purposes of decompressing the nerve as well as placement of the cage. The L5 nerve was identified as it traversed through the L5/S1 foramen. The thecal sac was identified and retracted. The L5/S1 disc base was identified. Using a knife the disc base was opened. And then sequential zandra were placed. The first shaver was a 6 and the last shaver was a 11. Using a pituitary and down going curette the endplates were scraped and disc material was removed from the space. Once adequate decompression of the disc base was felt to be had. Osteoamp sponge was packed into the anterior aspect of the disc base. Then a size 12 cage from [place] was placed after packing osteoamp into the cage. While placing the cage the thecal sac and S1 nerve was protected. C arm was used to ensure that the cages placed in the appropriate position. Next attention was brought to performing the laminectomy ofL4. This was done using the high-speed bur Kerrisons and curettes. Once the lamina was removed and then attention was brought to performing a partial facetectomy on the contralateral side. This was done again using the high-speed bur curettes and Kerrisons. The ligamentum flavum was taken down bilaterally from L4 to L5. Attention was then brought to the facet on the ipsilateral side. The facet was taken down. The L5 nerve was decompressed as it passed around the L5 pedicle. The laminectomy was done for purposes of decompressing the nerve as well as placement of the cage. The L4 nerve was identified as it traversed through the L4/5 foramen. The thecal sac was identified and retracted. The L4/5 disc base was identified. Using a knife the disc base was opened. And then sequential zandra were placed. The first shaver was a 6 and the last shaver was a 10. Using a pituitary and down going curette the endplates were scraped and disc material was removed from the space. Once adequate decompression of the disc base was felt to be had. Osteoamp sponge was packed into the anterior aspect of the disc base. Then a size 11 cage from [place] was placed after packing osteoamp into the cage. While placing the cage the thecal sac and L5 nerve was protected. C arm was used to ensure that the cages placed in the appropriate position. Attention was then brought to attaching the rods to the screws placed in the L 4 bilaterally, L5 bilaterally and S1 bilaterally. Caps were torqued into position. Locking the construct in place. Wound was copiously irrigated and then attention was brought to decorticating the facets and transverse processes laterally. Bone that was taken down from the lamina was used along with osteoamp fibers and sponges were packed into the lateral gutters along the facet joints. This was done bilaterally. Wound was then closed in a layered fashion starting with the thoracolumbar fascia. 0-vicryl was used the sub cutaneous tissue was closed with 2-0 vicryl and skin with 4-0 monocryl. Glue was then used to seal the skin and a steril dressing was applied. Patient was then placed in the supine position. The endotracheal tube was removed and patient was transferred to the PACU in stable condition.
--- NOTE | 2023-12-11 17:05 | ANE.PACU2 ---
Inpatient post-anesthesia follow up: Airway intact: Yes Vital signs: Temperature 97.6 F Pulse Rate 85 Respiratory Rate 16 Blood Pressure 139/95 Pulse Oximetry 97 Oxygen Delivery Me thod Room Air Oxygen Flow Rate Fraction of Inspir ed Oxygen Hydration adequate: Yes Nausea and vomiting: No Pain level: 3 Mental status: Altered (sedate)
[2023-12-11] MEDS: docusate sodium 100 mg Capsule PO (18:09)
[2023-12-11] MEDS: diazePAM 5 mg Tablet PO (18:09)
[2023-12-11] MEDS: lactated ringers 1,000 ML 90 ML IV (18:10)
[2023-12-11] MEDS: HYDROcodone-acetaminophen 5-325 mg Tablet PO (21:52)
[2023-12-12 00:50] VITALS: BP 121/78; PULSE 102; RESP 18; TEMP 36.7; O2SAT 95
[2023-12-12] MEDS: diazePAM 5 mg Tablet PO ×2 (03:35→20:25)
[2023-12-12 04:00] VITALS: BP 134/83; PULSE 97; RESP 20; TEMP 36.7; O2SAT 98
[2023-12-12 04:46] VITALS: BMI 28.5
[2023-12-12] MEDS: lactated ringers 1,000 ML 90 ML IV ×2 (05:02→16:19)
[2023-12-12] MEDS: clindamycin 600 MG/50 ML PREMIX 100 MG IV ×2 (05:05→13:04)
[2023-12-12] MEDS: HYDROcodone-acetaminophen 5-325 mg Tablet PO ×4 (05:12→21:31)
[2023-12-12 07:33] VITALS: BP 128/80; PULSE 97; RESP 17; TEMP 36.4; O2SAT 94
[2023-12-12] MEDS: docusate sodium 100 mg Capsule PO ×2 (08:31→17:01)
[2023-12-12] MEDS: pantoprazole DR 40 mg Tablet PO (08:31)
[2023-12-12] MEDS: ketorolac 30 mg/mL INJ IVP ×3 (08:32→23:01)
[2023-12-12 11:33] VITALS: BP 133/88; PULSE 92; RESP 18; TEMP 36.7; O2SAT 96
[2023-12-12 15:20] VITALS: BP 130/80; PULSE 78; RESP 16; TEMP 36.7; O2SAT 99
--- NOTE | 2023-12-12 16:30 | PM.DCS ---
Discharge Providers Date of Admission: 12/11/23 17:09 Date of Discharge: December 12, 2023 Attending Provider at Admission: Kameron Stokes DO Attending Provider at Discharge: Kameron Stokes DO Primary Care Provider: Jean-Paul Armas MD Reason for Visit Reason for Visit: M48.062 Physical Exam Narrative: Patient is doing well had his ups and downs today at this point we will plan on discharging him Urinary Catheter Management: Callaway: Cath Placed During This Visit: yes, but has since been removed by the nurse Reason for Continuing Indwelling Catheter: Decision to DC Catheter Urinary Catheter Date of Insertion: 12/11/23 Urinary Catheter Time of Insertion: 13:30 Date Urinary Catheter Removed: 12/12/23 Time Urinary Catheter Discontinued: 07:41 Discharge Data Studies Completed and Pending Completed Studies During Hospitalization Category Date Time Status XR lumbar spine 2-3V* [id number] Routine Exams 12/11/23 16:34 Completed Radiology Impressions Lumbar Spine X-Ray 12/11/23 16:34 IMPRESSION: Images obtained for intraoperative purposes. Laboratory Results Blood Type A Positive 12/11/23 12:20 Rho(D) Type Rh positive 12/11/23 12:20 Antibody Screen Negative 12/11/23 12:20 Vitals Last Vital Signs Temp 98.0 F 12/12/23 15:20 Pulse 78 12/12/23 15:20 Resp 16 12/12/23 15:20 BP 130/80 12/12/23 15:20 Pulse Ox 99 12/12/23 15:20 O2 Del Method Room Air 12/12/23 15:20 O2 Flow Rate 8 12/11/23 16:59 Discharge Plan Discharge Patient Disposition: Home Condition: Stable Prescriptions: New hydrocodone-acetaminophen 5-325 mg tablet 1 - 2 tab PO .Q4-6H Qty: 40 0RF Continued omeprazole 20 mg tablet,delayed release (DR/EC) 20 mg PO DAILY cetirizine [Zyrtec] 10 mg tablet 10 mg PO DAILY PRN (Reason: Allergic Symptoms) (DME) Bone Growth Stimulator See Rx Instructions .Route .MEDSUPPLY Qty: 1 0RF Rx Instructions: As directed Discharge Orders: Discharge Order (Routine); Ordered 12/12/23 Ordered By: Kameron Stokes Referrals: Kameron Stokes DO [Physician] - 06/25/24 3:00 pm Jean-Paul Armas MD [Primary Care Provider] - (We have notified your physician's clinic of the need for a follow-up appointment to be scheduled. If you have not heard from them within the next 2 business days, please call them directly. ) Discharge Diet: Advance as tolerated Discharge Activity: Limit activity as instructed Patient Instructions: Opioid Safety Activity Restrictions/Additional Instructions: Thank you for [facility] for your care! The following is a list of instructions, from your provider, to follow upon your discharge to ensure you have the optimal recovery from your recent injury orsurgery. Follow-up care is a hill part of your treatment and safety. Be sure to make and go to all appointments, and call your doctor if you are having problems. If you do not already have a follow-up appointment made, call [] office in the next 1-3 days to make follow up appointment for [] weeks at [phone]. It is also a good idea to know your test results and keep a list of the medicines you take. Medications will be prescribed for you at your provider's discretion. These medications are to be used as instructed; if they are taken more often that prescribed they will not be refilled early and in most cases will not be refilled at all. > When a refill is needed,you should contact terrie schmitt 2-3 business days before your prescription runs out. Medications will NOT be refilled by transportation inspector providers after hours! > Many pain medications contain Tylenol (Acetaminophen). Do not consume more than 4,000 mg of Tylenol per day in total with any combination ofmedications. > Pain medications can cause constipation. Please use an over the counter stool softener as directed, while taking pain medications. Consulty our local pharmacist with questions or recommendations on stool softeners. If constipation persists, contact our office or your primary care provider. > While under our care,you are not to receive pain medications or other controlled substances from any other provider unless our office is notified and approves. Any attempts to do so will result in refusal to prescribe any further pain medications and possible dismissal from our practice. ? ? Showering is permitted, however we ask that you do not take a bath, sit in a whirlpool / Jacuzzi, or go swimming for 1 month. For only the first 2 days after surgery, lt wilt be necessary for you to cover your wound/dressing with plastic and tape to keep it dry. ? Walking is essential for the healing process after surgery. We would like you to slowly advance your walking. This should be done on relatively flat clear ground (inside or out) or can be done on a treadmill. Remember this goal does not have to happen all at once, slowly increase your distance and duration. This can be broken into more more than one walk per day as tolerated. Patients who walk as directed after surgery rarely require Physical Therapy. In the unlikely event this issue arises your provider will direct hospital staff to make the appropriate arrangements. ? No lifting over 5 pounds {a gallon of milk) or bending/twisting until further notice. Each of these activities places an unnecessary amount of stress onto the body and can impede the delicate healing process. > Instead of bending at the waist, keep your back straight and bend at the knees. > Instead of twisting your torso, keep your back straight and turn your entire body with your feet. ? You may sleep in any position which makes you comfortable. Many patients find comfort sleeping in a reclining chair. It is not abnormal to have difficulty sleeping for the first several weeks following your surgery. We recommend trying Benadry! or Tylenol PM as directed to help with your sleeping difficulties. Both medications are over the counter and available withoutprescription. ? NO SMOKING!!! Smoking dramatically increases the probability of developing postoperative wound infections. ? Common complaints after lumbar and/or thoracic spine surgery include, but are not limited to: numbness and/or tingling in the legs, pain around the incision and surrounding tissues, muscle spasms, or stiffness of the middle to low back. Contact our office if these symptoms persist or if an acute change occurs. ? No driving for the first 3-5days, and not while taking narcotics [] until seen at your follow-up appointment and cleared. There are no restrictions for riding on short trips, however if you take a longer trip, arrangements should be made to make regular stops to get out of the vehicle and stretch . ? Swelling is an unfortunate event that will take place with any surgery and is the primary source of your postoperative discomfort. While walking and regular approved activities helps control inflammation, there are additional steps you can take to minimizeswelling. > Place ice over the surgical site and surrounding tissue for twenty minutes, followed by applying a low/medium heat (heating pad) for an additional twenty minutes every 1-2 hours as needed for painrelief. > You may use of over the counter anti-inflammatory medications (Ibuprofen, Motrin, Aleve, Advil, etc) as directed on the package label. These types of medicines wm significantly reduce the amount of discomfort you experience after surgery from swelling. It should be noted that if you have and allergy to any of these medications, or a history of ulcers or kidney disease you should consult you primary care provider prior to starting these medications. Discharge Attestations Time Spent in Discharge Care*: less than 30 min Quality Metrics Clinical Quality Measures [ No reported AMI, CVA or VTE this stay] Coding Level of Care Code Acute Code for Chg Ish
[2023-12-12 19:34] VITALS: BP 144/89; PULSE 93; RESP 18; TEMP 36.9; O2SAT 96
[2023-12-13] VITALS: BP 132/79; PULSE 93; RESP 17; TEMP 36.8; O2SAT 96
[2023-12-13 00:15] VITALS: BP 125/77; PULSE 91; RESP 18; TEMP 36.6; O2SAT 95
[2023-12-13] MEDS: HYDROcodone-acetaminophen 5-325 mg Tablet PO ×3 (01:40→11:30)
[2023-12-13] MEDS: lactated ringers 1,000 ML 90 ML IV (03:39)
[2023-12-13 04:00] VITALS: BP 144/91; PULSE 85; RESP 18; TEMP 36.6; O2SAT 96
[2023-12-13] MEDS: magnesium hydroxide 30 mL UDC PO (05:28)
--- NOTE | 2023-12-13 05:37 | PC.NURSE ---
Patient states that he is concerned that he has not had a BM since Saturday. Patient states he normally goes daily. PRN Milk of Mag given.
[2023-12-13 07:51] VITALS: BP 135/84; PULSE 80; RESP 18; TEMP 36.4; O2SAT 100
[2023-12-13] MEDS: pantoprazole DR 40 mg Tablet PO (07:58)
[2023-12-13] MEDS: ketorolac 30 mg/mL INJ IVP (07:59)
[2023-12-13] MEDS: docusate sodium 100 mg Capsule PO (07:59)
--- NOTE | 2023-12-13 08:13 | PM.PN ---
Subjective Subjective: Patient ended up staying overnight last night. Will discharge today. Vitals/I&O/Wt Last Vital Signs Temp 97.5 F L 12/13/23 07:51 Pulse 80 12/13/23 07:51 Resp 18 12/13/23 07:51 BP 135/84 12/13/23 07:51 Pulse Ox 100 12/13/23 07:51 O2 Del Method Room Air 12/13/23 07:51 O2 Flow Rate 8 12/11/23 16:59 12/12/23 12/13/23 12/13/23 22:59 06:59 14:59 Intake Total 1360 / 2010 1500 / 3510 Output Total 210 / 860 110 / 970 Balance 1150 / 1150 1390 / 2540 Weight last 48 hrs Weight 217 lb 11.2 oz Weight 222 lb Weight 215 lb Weight 215 lb Physical Exam Narrative: Complain of spasms when he gets up. Urinary Catheter Management: Callaway: Cath Placed During This Visit: yes, but has since been removed by the nurse Reason for Continuing Indwelling Catheter: Decision to DC Catheter Urinary Catheter Date of Insertion: 12/11/23 Urinary Catheter Time of Insertion: 13:30 Date Urinary Catheter Removed: 12/12/23 Time Urinary Catheter Discontinued: 07:41 A&P Assessment and plan (1) Status post lumbar spinal fusion: Postop day #2 lumbar fusion. At this point patient will be discharged this morning. I will add a muscle relaxant and we will see him back in 1 week. Attestations Medical Necessity Statement*: Discharge plan for today Coding Level of Care Code Acute Code for Chg Fwd Diagnoses Status post lumbar spinal fusion Z98.1
--- NOTE | 2023-12-13 08:39 | PC.SOCIAL ---
DME Patient has DC orders. Walker Order received. Choice sheet completed and placed in chart. Pre-Cert completed #: [id number]. Walker Order and Pre-Cert faxed to HOME @ this time.
--- NOTE | 2023-12-13 09:03 | PC.CHAP ---
Pastoral Care Encounter/Spiritual Assessment Type of Contact [] Declined weighing station operator visit [] Patient/Family/Request visit [] Outpatient visit [] Follow-up visit [] Physician referral [] Code/Alert [x] Routine visit [] Staff referral [] Actively dying [] Patient sleeping [] Family support [] [] Out of room [] Palliative care [] [] Receiving care in room [] Pre-surgical visit [] Trauma [] Long length of stay [] ICU visit [] Other: Relational/Emotional Strength [x] Patient feels connected with others/family/visitors/staff [] Distress [] Loneliness/isolation [] Abandonment Spirituality of Patient [x] Person of Lisa [] Attends Synagogue of their Lisa [x] Believes in Prayer [] Reads Bible or Church materials [] There are Spiritual issues to be addressed Retail Coverage Merchandiser Interventions [x] Prayer [x] Active listening [] Non-anxious presence [x] Spiritual/emotional support [] Crisis/trauma care [] Spiritual counseling [] Bereavement support [] Provided bereavement packet [] Provided Bible/devotional materials [] Provided toy/stuffed animal, coloring book to patient or family member [] Provided Communion [] Anointing/[place] [] Salvation [x] Completed spiritual assessment [] Other: Impact on Illness or Injury [] Angry [] Fearful [] Anxious [] Often cries [] Exhaustion [] Unable to work [] Unable to attend sabianist [] Unable to walk/stand [] Unable to read [] Unable to drive [] Unable to eat/drink [] Unable to sleep [] Unable to be with family [] Patient intubated [] Other: Summary Time spent with patient 5 min
--- NOTE | 2023-12-13 09:03 | PC.SOCIAL ---
DME Order has been changed from Standard FWW to rollator walker. New order faxed to HOME @ this time. Called and updated [facility] @ [place].
[2023-12-13] MEDS: diazePAM 5 mg Tablet PO (09:19)
--- NOTE | 2023-12-13 09:26 | PC.NURSE ---
Removed wound vac without issues.
--- NOTE | 2023-12-13 10:52 | PC.NURSE ---
Pt states on way approx. 40 minutes before she arrives.
[2023-12-13 11:36] VITALS: BP 139/90; PULSE 78; RESP 18; TEMP 36.5; O2SAT 96
[2023-12-13 12:01] VITALS: BP 139/90; PULSE 78; RESP 18; TEMP 36.5; O2SAT 96
== END 2023-12-13 12:03 | disposition home or self-care (01) | DRG 455 ==
LOC: MEDSURG 23:53
PROVIDERS: Admitting Provider Orthopaedic Surgery; PCP Family Medicine Adult Medicine; Visit Provider Orthopaedic Surgery
PROC: 0SG00AJ Fusion of Lumbar Vertebral Joint with Interbody Fusion Device, Posterior Approach, Anterior Column, Open Approach (ICD-10-PCS; CPT 22612; principal; 2023-12-11 12:50)
DX: M48.062 Spinal stenosis, lumbar region with neurogenic claudication (principal)
CPT/HCPCS: 36415; 51702; 72100; 76000; 86850; 86900; 97110; 97116; 97161; C1713; C9359; J0131; J1100; J1170; J1644; J1885; J2405; J2704; J2710; J3010; J3370; J3490; J7030; J7120

== ENCOUNTER → 2024-01-21 07:14 | Outpatient (BNVA) | payer BC, MEDICAID, SELFPAY | PROVIDERS: PCP Family Medicine Adult Medicine; Visit Provider Orthopaedic Surgery | DX: Z98.1 Arthrodesis status (principal) | CPT/HCPCS: 72100 ==

== ENCOUNTER → 2024-03-03 08:32 | Outpatient (BNVA) | payer BC, MEDICAID, SELFPAY | PROVIDERS: PCP Family Medicine Adult Medicine; Visit Provider Orthopaedic Surgery | DX: Z98.1 Arthrodesis status (principal) | CPT/HCPCS: 72100 ==

== ENCOUNTER 2024-03-23 05:01 | Emergency (ER) | payer BC, MEDICAID, SELFPAY ==
[2024-03-23 05:06] VITALS: BP 152/101; PULSE 93; RESP 16; TEMP 36.6; O2SAT 99; BMI 28.2
--- NOTE | 2024-03-23 05:11 | W.ED.EAR ---
HPI - Ear Problem General: Chief complaint: Ear Stated complaint: severe pain in ear right side Time Seen by Provider: 03/23/24 05:03 Source: patient Mode of arrival: ambulatory Limitations: no limitations History of Present Illness: 44-year-old male states he been having right-sided ear pain over the last 3 days. States it is sharp pain rates it a 7 out of 10 he denies any fever denies any sore throat denies any worse improving factors has had no vomiting diarrhea Associated symptoms: Reports ear or mastoid pain; Denies fever(s), headache(s) or neck pain Related Data Previous Rx's Medication Instructions Recorded Bone Growth Stimulator #1 ea 12/06/23 cephalexin 500 mg capsule 500 mg PO TID 7 days #21 caps 03/23/24 ofloxacin 0.3 % ear drops 10 drp otic (ear) DAILY 7 days #5 03/23/24 mL Allergies Allergy/AdvReac Type Severity Reaction Status Date / Time amoxicillin [From Augmentin] Allergy anaphylacti Verified 02/25/24 10:35 c clavulanic acid Allergy anaphylacti Verified 02/25/24 10:35 [From Augmentin] c rice Allergy ADR-Nausea Verified 02/25/24 10:35 gabapentin AdvReac ADR-Seizure Verified 02/25/24 10:35 Review of Systems Const: Denies: fever(s), chills, body aches or change in appetite ENMT: Reports: ear or mastoid pain; Denies: throat pain or dental pain Card: Denies: chest pain Resp: Denies: dyspnea GI: Denies: abdominal pain, nausea, vomiting or diarrhea Musc: Denies: neck pain or back pain Skin/Breast: Denies: rash Neuro: Denies: headache(s) PFSH ED PFSH: Medical History Costochondritis, acute Osteoarthritis involving multiple joints on both sides of body Lumbar disc disease History of skin cancer last skin survey 4-5 yrs ago Allergic rhinitis due to allergen Family history of skin cancer Family history of prostate cancer in father Nocturnal cough URI with cough and congestion Social History Smoking and tobacco/nicotine status: never used tobacco/nicotine Physical Exam Const: COMMON NORMALS: no acute distress, patient oriented x3 and healthy appearing HENMT: COMMON NORMALS: normocephalic and atraumatic HEAD & SCALP: normocephalic and atraumatic Eye: OTHER: Erythema noted to right TM he also has some erythema to the right ear canal Neck/C-Spine: COMMON NORMALS: full ROM and supple Chest: COMMONS NORMALS: normal inspection of the chest Resp: COMMON NORMALS: normal respiratory effort Extremity: COMMON NORMALS: normal to inspection and full ROM Neuro: COMMON NORMALS: patient oriented x3, moves all extremities and no focal motor deficits Psych: COMMON NORMALS: mental status grossly normal, Normal thought process present and cooperative THOUGHT PROCESS: Normal thought process present Skin: COMMON NORMALS: no rashes or lesions noted and no wounds GENERAL SKIN EXAM: no rashes or lesions noted Course Vital Signs: Vital signs: Vital Signs Temperature 97.8 F 03/23/24 05:06 Pulse Rate 93 03/23/24 05:06 Respiratory Rate 16 03/23/24 05:06 Blood Pressure 152/101 03/23/24 05:06 Pulse Oximetry 99 03/23/24 05:06 [facility] - Ear Medical Decision Making Patient presents for otitis media he also has otitis externa to the right ear we will place him on ofloxacin eardrops along with oral antibiotic he stable for discharge follow-up with PCP return if worsening. No radiology studies performed this visit Discharge Plan Discharge Patient Disposition: Home Clinical Impression: Otitis media Otitis externa Qualifiers: Otitis externa type: unspecified type Laterality: right Condition: Stable Prescriptions: New ofloxacin 0.3 % drops 10 drp otic (ear) DAILY 7 Days Qty: 5 0RF cephalexin 500 mg capsule 500 mg PO TID 7 Days Qty: 21 0RF No Action (DME) Bone Growth Stimulator See Rx Instructions .Route .MEDSUPPLY Qty: 1 0RF Rx Instructions: As directed Discharge Orders: Discharge ED (Routine); Ordered 03/23/24 Ordered By: Conchis Hillman Referrals: Jean-Paul Armas MD [Primary Care Provider] - Discharge Diet: Advance as tolerated Discharge Activity: Resume usual activity Patient Instructions: Opioid Safety, Pain Management Coding Level of Care Code ED Senior Compensation Analyst for Titi Deng
[2024-03-23 05:17] VITALS: BP 152/101; PULSE 94; O2SAT 98
== END 2024-03-23 05:18 | disposition home or self-care (01) ==
PROVIDERS: Emergency Provider Emergency Medicine; PCP Family Medicine Adult Medicine
DX: H66.91 Otitis media, unspecified, right ear (principal); H60.91 Unspecified otitis externa, right ear
CPT/HCPCS: 99283

== ENCOUNTER 2024-04-07 07:31 | Day surgery (SDC) | payer BC, MEDICAID, SELFPAY ==
[2024-04-07] VITALS (15 sets, daily range): BP systolic 130–156; BP diastolic 73–102; PULSE 74–100; RESP 14–17; TEMP 36.1–36.2; O2SAT 98–100; BMI 27.6
[2024-04-07] MEDS: sodium chloride 0.9% 1,000 ML 30 ML IV (08:04)
[2024-04-07] MEDS: vancomycin 1,500 MG/300 ML PIGGYBACK 200 MG IV (08:11)
--- NOTE | 2024-04-07 09:21 | W.PM.OPSUD ---
Surgery/Procedure H&P Update DATE OF PROCEDURE: April 07, 2024 DATE H&P PERFORMED: 04/02/24 H&P UPDATE INFORMATION: I have reviewed H&P completed within last 30 days, I have examined patient prior to procedure and No changes to prior documentation PLANNED PROCEDURE: Operation Date: 04/07/24 08:50 Proposed Procedures p excision of subcutaneous mass of scalp x2, [id number],R22.9(Not Applicable) - Pierre Mendoza DO
[2024-04-07] MEDS: diphenhydrAMINE 50 mg/mL SDV 1mL 12.5 MG IVP (09:42)
[2024-04-07] MEDS: lidocaine-epi 2% PF 1:200,000 20 mL SDV XX (09:51)
--- NOTE | 2024-04-07 09:52 | SUR.PREOP ---
Upon time to go back to OR patient stated he was starting to itch and appeared to have red flushed face, neck and head. An order was obtained for benadryl and was sent with BARREL REPAIRER to be given in OR
[2024-04-07] MEDS: neomycin-poly-bacitracin oint 28 gm 1 APPLIC TOPICAL (10:12)
--- NOTE | 2024-04-07 10:39 | PM.OP ---
Operative Report Date of procedure: April 07, 2024 Pre-op diagnosis: Subcutaneous masses of scalp x 2 Post-op diagnosis: same Procedure done: Excision of subcutaneous masses of scalp x 2 Specimens removed/disposition: Excision of subcutaneous mass of scalp-1 (crown) Excision of subcutaneous mass of scalp-2 (right parietal) Surgeon: Pierre Mendoza DO Anesthesia: Local Estimated blood loss (mL): 20 Complications: None apparent Brief History: This is a very pleasant 44-year-old gentleman who comes to my office with enlarging and draining subcutaneous masses of his scalp x 2. He desired excision. The risks and benefits were explained and documented. Procedure: Patient was wheeled operative room placed on the OR table in the supine position. The hair over the lesions was shaved and the skin was inspected prepped and draped in usual sterile fashion. Timeout was performed. All present were in agreement. 2% lidocaine with epinephrine was used to anesthetize the skin overlying the subcutaneous masses. Starting at the subcutaneous mass on the crown of the head, a 2.5 cm ellipse of skin was performed around the mass. Electrocautery was used to dissect down through the dermis and dissected out a cystic structure. Hemostasis was achieved with electrocautery. Skin was closed with 2-0 and 3-0 nylon in a simple interrupted fashion. Skin was washed and dried. Triple antibiotic was applied. Attention was then brought to the right parietal subcutaneous mass. 2% lidocaine with epinephrine was used to anesthetize the skin overlying the area. A 15 blade scalpel was used to make a 1.5 cm ellipse of skin. Electrocautery was used to dissect down through the dermis and subcutaneous tissue. The mass was removed en bloc and passed off. Hemostasis was achieved with electrocautery and a small clip radiological health specialist. Skin was closed with 2-0 and 3-0 nylon in a simple interrupted fashion. Skin was washed and dried. Triple antibiotic was applied. Patient tolerated procedure well.
--- NOTE | 2024-04-07 11:00 | ANE.PACU2 ---
Inpatient post-anesthesia follow up: Airway intact: Yes Vital signs: Temperature 97.1 F Pulse Rate 88 Respiratory Rate 17 Blood Pressure 130/73 Pulse Oximetry 98 Oxygen Delivery Me thod Room Air Oxygen Flow Rate Fraction of Inspir ed Oxygen Hydration adequate: Yes Nausea and vomiting: No Pain level: 1 Mental status: Baseline
== END 2024-04-07 10:57 | disposition home or self-care (01) ==
PROVIDERS: PCP Family Medicine Adult Medicine; Visit Provider Surgery
PROC: (CPT 11424; principal; 2024-04-07 08:40)
DX: R22.0 Localized swelling, mass and lump, head (principal)
CPT/HCPCS: 11424; 88304; J1200; J3370; J7030

== ENCOUNTER 2024-05-20 11:32 | Day surgery (SDC) | payer BC, MEDICAID, SELFPAY ==
[2024-05-20 11:51] VITALS: BP 133/95; PULSE 83; RESP 16; TEMP 36.2; O2SAT 100; BMI 28.2
[2024-05-20] MEDS: sodium chloride 0.9% 1,000 ML 30 ML IV (12:01)
--- NOTE | 2024-05-20 12:15 | ANES.PREANE2 ---
Pre-Anesthetic Assessment Height/Weight: Height 1.88 m Weight 99.79 kg Temp Pulse Resp BP Pulse Ox O2 Del Method 97.1 F L 83 16 133/95 100 Room Air 05/20/24 11:51 05/20/24 11:51 05/20/24 11:51 05/20/24 11:51 05/20/24 11:51 05/20/24 11:51 Preop Diagnosis: esophageal strictures Operation Date: 05/20/24 12:30 Proposed Procedures p EGD Dilation W/ Balloon- 98160,K22.9(Not Applicable) - Pierre Mendoza DO Familial anesthetic complications: none Was Beta Cindy taken within 24 hours: N/A Was Clonidine taken within 24 hours: N/A Last intake: Intake Last Liquid Date 05/19/24 Last Liquid Time 20:00 Last Solid Date 05/19/24 Last Solid Time 20:00 Social No alcohol and No tobacco Exam alert and oriented x 3 Airway Submandibular: within normal limits Cervical ROM: within normal limits Mallampati: Class I Dentition: full Pulmonary None reported CV/HEM gets frequent nose bleeds. right nostril cauterized recently. None reported Hepatic None reported GI Gastroesophageal Reflux Disease Metabolic None reported Musc/skel None reported Neuropsych Seizure (from gabapentin) Anesthetic Plan ASA status: 2 Anesthesia: Anesthesia Evaluation and MAC Medications/Allergies Home Medications Medication Instructions Recorded Confirmed Last Taken Type pantoprazole 40 mg tablet,delayed 40 mg PO BID 6 weeks #84 tabs 05/11/24 05/20/24 05/19/24 Rx release (Protonix) Allergies Allergy/AdvReac Type Severity Reaction Status Date / Time amoxicillin [From Augmentin] Allergy anaphylacti Verified 05/11/24 09:00 c clavulanic acid Allergy anaphylacti Verified 05/11/24 09:00 [From Augmentin] c rice Allergy ADR-Nausea Verified 05/11/24 09:00 gabapentin AdvReac ADR-Seizure Verified 05/11/24 09:00 Current Medications Generic Name Dose Route Start Last Admin Trade Name Freq PRN Reason Stop Dose Admin Sodium Chloride 1,000 mls @ 30 mls/hr 05/20/24 11:45 05/20/24 12:01 Sodium Chloride 0.9% IV 05/21/24 11:44 30 mls/hr .Q24H MEHUL Administration PFSH Anesthesia Medical History Cyst Lipoma of back Ruptured ear drum Costochondritis, acute Osteoarthritis involving multiple joints on both sides of body Lumbar disc disease History of skin cancer last skin survey 4-5 yrs ago Allergic rhinitis due to allergen Family history of skin cancer Family history of prostate cancer in father Nocturnal cough URI with cough and congestion Surgical History H/O excision of mass on scalp x2 Family History Mother Cancer carcinoma Father Cancer skin cancer Grandfather Cancer pancreatic Social History Smoking and tobacco/nicotine status: never used tobacco/nicotine Data Anesthesia Cardiac Studies: No Data to Display
--- NOTE | 2024-05-20 12:51 | W.PM.OPSUD ---
Surgery/Procedure H&P Update DATE OF PROCEDURE: May 20, 2024 DATE H&P PERFORMED: 05/11/24 H&P UPDATE INFORMATION: I have reviewed H&P completed within last 30 days, I have examined patient prior to procedure and No changes to prior documentation PREOP DIAGNOSIS: esophageal strictures PLANNED PROCEDURE: Operation Date: 05/20/24 12:30 Proposed Procedures p EGD Dilation W/ Balloon- 84317,K22.9(Not Applicable) - Pierre Mendoza DO
[2024-05-20 13:02] VITALS: BP 131/84; PULSE 99; RESP 18; TEMP 36.2; O2SAT 96
[2024-05-20 13:17] VITALS: BP 138/85; PULSE 93; RESP 18; O2SAT 98
--- NOTE | 2024-05-20 13:45 | ANE.PACU2 ---
Inpatient post-anesthesia follow up: Airway intact: Yes Vital signs: Temperature 97.1 F Pulse Rate 93 Respiratory Rate 18 Blood Pressure 138/85 Pulse Oximetry 98 Oxygen Delivery Me thod Room Air Oxygen Flow Rate Fraction of Inspir ed Oxygen Hydration adequate: Yes Nausea and vomiting: No Pain level: 1 Mental status: Baseline
== END 2024-05-20 13:45 | disposition home or self-care (01) ==
PROVIDERS: PCP Family Medicine Adult Medicine; Visit Provider Surgery
DX: K22.9 Disease of esophagus, unspecified (principal); K29.80 Duodenitis without bleeding; K22.2 Esophageal obstruction; K20.90 Esophagitis, unspecified without bleeding; K21.9 Gastro-esophageal reflux disease without esophagitis
CPT/HCPCS: 43239; 43249; 88305; J2704; J7030

== ENCOUNTER → 2024-06-11 08:16 | Outpatient (BNVA) | payer BC, MEDICAID, SELFPAY | PROVIDERS: PCP Family Medicine Adult Medicine; Visit Provider Orthopaedic Surgery | DX: Z98.1 Arthrodesis status (principal) | CPT/HCPCS: 72100 ==

== ENCOUNTER 2024-12-05 16:04 | Emergency (ER) | payer BC, MEDICAID, SELFPAY ==
[2024-12-05 16:09] VITALS: BP 143/93; PULSE 90; RESP 17; TEMP 36.3; O2SAT 98; BMI 29.5
[2024-12-05] MEDS: ondansetron 2 mg/ML SDV 2 mL 4 MG IVP (16:55)
[2024-12-05] MEDS: sodium chloride 0.9% 1,000 ML 999 ML IV (16:55)
[2024-12-05 17:00] LABS: Basophils # 0.1 10^3/uL (0.0-0.1); Basophils % 0.5 %; Eosinophils # 0.6 10^3/uL (0.0-0.8); Hematocrit 45.5 % (37-53); Lymphocytes # 1.6 10^3/uL (0.8-4.8); Lymphocytes % 15.4 %; Mean Corpuscular HGB Conc 34.7 g/dL (30-55); Mean Corpuscular Hemoglobin 29.9 pg (27-33); Mean Corpuscular Volume 86.2 fl (82-101); Mean Platelet Volume 10.4 fL (7.4-10.4); Monocytes # 0.9 10^3/uL (0.2-0.9); Monocytes % 8.4 %; Neutrophils # 7.28 10^3/uL (1.8-7.7); Neutrophils % 69.5 %; Nucleated Red Blood Cells % 0 %; Platelet Count 205 10^3/cmm (157-399); Red Blood Count 5.28 10^6/uL (3.85-5.65); Red Cell Distribution Width 13.2 % (12.1-15.1); White Blood Count 10.47 10^3/uL (3.29-11.43)
[2024-12-05 17:21] LABS: Alanine Aminotransferase 28 U/L (0-41); Albumin Level 4.8 g/dL (3.5-5.2); Alkaline Phosphatase 80 U/L (40-130); Anion Gap 17.9 (5-19); Aspartate Amino Transferase 22 U/L (0-40); Blood Urea Nitrogen 15 mg/dL (6-20); Calcium 10.2 mg/dL (8.5-10.5); Carbon Dioxide 26 mmol/L (22-29); Chloride 101 mmol/L (98-107); Creatinine Clr Calc Pharmacy 122.6651; Globulin 4.1 g/dL (1.3-4.6); Glomerular Filtration Rate 81.6 mL/min (90-130); Glucose 84 mg/dL (65-115); Lipase 53 U/L (13-60); Osmolality Calculated 292 mOsm/kg (285-295); Potassium 3.9 mmol/L (3.5-5.1); Sodium 141 mmol/L (136-145); Total Bilirubin 0.5 mg/dL (0.15-1.2); Total Protein 8.9 g/dL (6.6-8.7)
--- NOTE | 2024-12-05 17:24 | ED_ITS ---
HPI - Abdominal Pain 2 General: Chief Complaint: Abdominal Pain Stated Complaint: upper abdominal cramps Time Seen by Provider: 12/05/24 16:18 History of Present Illness: 44-year-old male presents with some epig astric cramping tenderness is been gone for couple days. Patient had a lot of diarrheal stool. Patient has mild nausea but no vomiting. Associated Symptoms: Reports diarrhea and nausea; Denies chills, dysuria, fever(s) and vomiting Related Data Home Medications ?Medication ?Instructions ?Recorded ?Confirmed pantoprazole 40 mg tablet,delayed 40 mg PO QPM 5 12/05/24 release (Protonix) sucralfate 1 gram tablet 1 g PO QPM 12/05/24 12/05/24 Previous Rx's ?Medication ?Instructions ?Recorded dicyclomine 20 mg tablet 20 mg PO QID PRN abdominal p ain 12/05/24 #10 tabs ondansetron HCl 4 mg tablet 4 mg PO Q6H PRN nausea and 12/05/24 vomiting #20 tabs Allergies Allergy/AdvReac Type Severity Reaction Status Date / Time amoxicillin (From Augmentin) Allergy anaphylacti Verified 11/12/24 09:02 c clavulanic acid (From Allergy anaphylacti Verified 11/12/24 09:02 Augmentin) c rice Allergy ADR-Nausea Verified 11/12/24 09:02 gabapentin AdvReac ADR-Seizure Verified 11/12/24 09:02 Review of Systems 2 Const: Denies: fever(s) or chills Resp: Denies: dyspnea or productive cough GI: Reports: abdominal pain (Cramping), nausea and diarrhea; Denies: vomiting : Reports: flank pain; Denies: difficulty urinating or dysuria Skin/Breast: Denies: rash or pruritus PFSH ED 2 PFSH: Medical History Cyst Lipoma of back Ruptured ear drum Costochondritis, acute Osteoarthritis involving multiple joints on both sides of body Lumbar disc disease History of skin cancer last skin survey 4-5 yrs ago Allergic rhinitis due to allergen Family history of skin cancer Family history of prostate cancer in father Nocturnal cough URI with cough and congestion Surgical History H/O excision of mass on scalp x2 Family History Mother Cancer carcinoma Father Cancer skin cancer Grandfather Cancer pancreatic Social History Smoking and tobacco/nicotine status: never used tobacco/nicotine Physical Exam 2 Const: COMMON NORMALS: no acute distress and patient oriented x3 Resp: COMMON NORMALS: normal respiratory effort and No retractions Cardio: COMMON NORMALS: regular rate and regular rhythm RATE: regular rate RHYTHM: regular rhythm GI: COMMON NORMALS: Soft to palpation PALPATION: Yes Soft to palpation and Yes Tenderness to palpation present (GI) (mild upper abd) Neuro: COMMON NORMALS: patient oriented x3, moves all extremities and no focal motor deficits Psych: COMMON NORMALS: mental status grossly normal, cooperative, normal affect and speech normal SPEECH: Yes normal speech Skin: COMMON NORMALS: no rashes or lesions noted and turgor normal GENERAL SKIN EXAM: no rashes or lesions noted and turgor normal Course 2 Vital Signs: Vital signs: Vital Signs Temperature 97.4 F L 12/05/24 16:09 Pulse Rate 90 12/05/24 16:09 Respiratory Rate 17 12/05/24 16:09 Blood Pressure 143/93 12/05/24 16:09 Pulse Oximetry 98 12/05/24 16:09 Oxygen Delivery Me thod Room Air 12/05/24 16:09 MDM - Abdominal Pain Medical Decision Making Patient diagnostics were reviewed and showed no acute or concerning findings. Patient had benign physical exam. Patient likely with a gastroenteritis. Patient was offered imaging as he feels that is possibly more than just a gastroenteritis however he declined at this time and will return if he feels symptoms worsen. Patient was stable and discharged home he should follow-up with a primary care provider in a couple days if symptoms continue to worsen return to the ER as needed. Lab Data 12/05/24 16:44 12/05/24 16:44 Labs/Radiology: Laboratory Results WBC 10.47 10^3/uL (3.29-11.43) 12/05/24 16:44 RBC 5.28 10^6/uL (3.85-5.65) 12/05/24 16:44 Hgb 15.80 g/dL (11.27-16.99) 12/05/24 16:44 Hct 45.5 % (37-53) 12/05/24 16:44 MCV 86.2 fl (82-101) 12/05/24 16:44 MCH 29.9 pg (27-33) 12/05/24 16:44 MCHC 34.7 g/dL (30-55) 12/05/24 16:44 RDW 13.2 % (12.1-15.1) 12/05/24 16:44 Plt Count 205 10^3/cmm (157-399) 12/05/24 16:44 MPV 10.4 fL (7.4-10.4) 12/05/24 16:44 Neut % (Auto) 69.5 % 12/05/24 16:44 Lymph % (Auto) 15.4 % 12/05/24 16:44 [place] % (Auto) 8.4 % 12/05/24 16:44 Eos % (Auto) 6.0 % 12/05/24 16:44 Baso % (Auto) 0.5 % 12/05/24 16:44 Neut # (Auto) 7.28 10^3/uL (1.8-7.7) 12/05/24 16:44 Lymph # (Auto) 1.6 10^3/uL (0.8-4.8) 12/05/24 16:44 [place] # (Auto) 0.9 10^3/uL (0.2-0.9) 12/05/24 16:44 Eos # (Auto) 0.6 10^3/uL (0.0-0.8) 12/05/24 16:44 Baso # (Auto) 0.1 10^3/uL (0.0-0.1) 12/05/24 16:44 Nucleated RBC % (auto) 0 % 12/05/24 16:44 Nucleated RBCs # 0.0 /100WBC 12/05/24 16:44 Sodium 141 mmol/L (136-145) 12/05/24 16:44 Potassium 3.9 mmol/L (3.5-5.1) 12/05/24 16:44 Chloride 101 mmol/L (98-107) 12/05/24 16:44 Carbon Dioxide 26 mmol/L (22-29) 12/05/24 16:44 Anion Gap 17.9 (5-19) 12/05/24 16:44 BUN 15 mg/dL (6-20) 12/05/24 16:44 Creatinine 1.0 mg/dL (0.7-1.2) 12/05/24 16:44 GFR Calculation 81.6 mL/min (90-130) L 12/05/24 16:44 Glucose 84 mg/dL (65-115) 12/05/24 16:44 Calculated Osmolality 292 mOsm/kg (285-295) 12/05/24 16:44 Calcium 10.2 mg/dL (8.5-10.5) 12/05/24 16:44 Total Bilirubin 0.5 mg/dL (0.15-1.2) 12/05/24 16:44 AST 22 U/L (0-40) 12/05/24 16:44 ALT 28 U/L (0-41) 12/05/24 16:44 Alkaline Phosphatase 80 U/L (40-130) 12/05/24 16:44 Total Protein 8.9 g/dL (6.6-8.7) H 12/05/24 16:44 Albumin 4.8 g/dL (3.5-5.2) 12/05/24 16:44 Globulin 4.1 g/dL (1.3-4.6) 12/05/24 16:44 Lipase 53 U/L (13-60) 12/05/24 16:44 No radiology studies performed this visit Discharge Plan Discharge Patient Disposition: Home Clinical Impression: Gastroenteritis Condition: Stable Prescriptions: New ondansetron HCl 4 mg tablet 4 mg PO Q6H PRN (Reason: nausea and vomiting) Qty: 20 0RF dicyclomine 20 mg tablet 20 mg PO QID PRN (Reason: abdominal pain) Qty: 10 0RF No Action sucralfate 1 gram tablet 1 g PO QPM pantoprazole [Protonix] 40 mg tablet,delayed release (DR/EC) 40 mg PO QPM Rx Instructions: take daily x 6 weeks then stop Discharge Orders: Discharge ED (Routine); Ordered 12/05/24 Ordered By: Nestor Gama Referrals: Baldev Reaves MD [Primary Care Provider, Family Practice] Discharge Diet: Usual diet Discharge Activity: Increase activity as tolerated Patient Instructions: Gastroenteritis (ED), Opioid Safety, Pain Management Activity Restrictions/Additional Instructions: Diet as tolerated. Please call your primary care provider Saturday or Saturday if symptoms or continue to worsen. Return to the ER as needed. Be sure you are drinking plenty of fluids. Print Language: Uzbek Coding Level of Care Code ED Laminating Machine Operator Helper for Titi Deng
== END 2024-12-05 18:36 | disposition home or self-care (01) ==
PROVIDERS: Emergency Medicine; Emergency Provider Student in an Organized Health Care Education/Training Program; PCP Family Medicine
DX: K52.9 Noninfective gastroenteritis and colitis, unspecified (principal); Z85.828 Personal history of other malignant neoplasm of skin
CPT/HCPCS: 36415; 80053; 83690; 85025; 96361; 96374; 96375; 99284; J1980; J2405; J7030

== ENCOUNTER → 2024-12-10 08:08 | Outpatient (BNVA) | payer BC, MEDICAID, SELFPAY | PROVIDERS: PCP Family Medicine; Visit Provider Orthopaedic Surgery | DX: Z98.1 Arthrodesis status (principal) | CPT/HCPCS: 72100 ==

== ENCOUNTER 2025-02-17 08:28 | Emergency (ER) | payer BC, MEDICAID, SELFPAY ==
--- OUTSIDE RECORDS SUMMARY | 2025-02-17 08:32 | XMS_ITS | Clinical Summary ---
Author Organization [facility] Address [address] [place] [address] Care Team Providers Care Exhibit Technician Name Role Phone Unavailable Primary Care Provider Unavailabl e Allergies No known active allergies Medications pantoprazole (PROTONIX) 40 mg Tablet, Delayed Release (E.C.) Take 40 mg by mouth daily in the morning. 12/17/2024 Active sucralfate (CARAFATE) 1 gram tablet Take 1 Tablet by mouth 2 times daily. 12/17/2024 Active Active Problems Problem Noted Date Diagnosed Date Gastroesophageal reflux disease 02/04/2025 Current use of proton pump inhibitor 02/04/2025 Encounters Date Type Department Care Team Description 02/04/2025 11:00 AM CDT Video Visit [facility] Gastroenterology[address] [phone] Bay Orr FNP Gastroesophageal reflux disease, unspecified whether esophagitis present (Primary Dx); Current use of proton pump inhibitor 02/04/20[facility] [phone] Tasneem Pires RN [facility] 02/04/[address] [facility] Gastroenterology[address] [phone] Tasneem Pires RN [facility] 11/18/[address] 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 Gender Identity Not on file Sexual Orientation Not on file Last Filed Vital Signs Vital Sign Reading Time Taken Comments Blood Pressure - - Pulse - - Temperature - - Respiratory Rate - - Oxygen Saturation - - Inhaled Oxygen Concentration - - Weight 102.1 kg (225 lb) 02/04/2025 10:39 AM CDT Height 188 cm (6' 2 ) 02/04/2025 10:39 AM CDT Body Mass Index 28.89 02/04/2025 10:39 AM CDT Plan of Treatment Upcoming Encounters Date Type Department Care Team (Latest Contact Info) Description 04/01/2025 7:50 AM CDT Hospital Encounter [facility] Endoscopy [place] [address] [place] [phone] Tiffany Rapp, DO [address] [facility] [address] [place] [phone] 04/01/2025 7:50 AM CDT - 04/01/2025 8:20 AM CDT Surgery [facility] Endoscopy [place] [address] [place] [address] [place] [phone] Tiffany Rapp, DO [address] [facility] [address] [place] [phone] ESOPHAGEAL MOTILITY MANOMETRY STUDY 04/01/2025 2:40 PM CDT Hospital Encounter [facility] Endoscopy [place] [address] [place] [address] [place] [phone] Tiffany Rapp, DO [address] [facility] [address] [place] [phone] 04/01/2025 2:40 PM CDT - 04/01/2025 3:00 PM CDT Surgery [facility] Endoscopy [place] [address] [place] [address] [place] [address], [place] [phone] Tiffany Rapp, DO [address] [facility] [address] [place] [phone] ESOPHAGOGASTRODUODENOSCOPY Scheduled Procedures Name Priority Associated Diagnoses Date/Ti me ESOPHAGOGASTRODUODENOSCOPY Dysphagia, unspecified type Gastric reflux Heartburn 04/01/2025 2:40 PM CDT PH STUDY 48 HOUR Dysphagia, unspecified type Gastric reflux Heartburn 04/01/2025 2:40 PM CDT ESOPHAGEAL MOTILITY MANOMETRY STUDY Dysphagia, unspecified type Gastric reflux Heartburn 04/01/2025 7:50 AM CDT Health Maintenance Due Date Last Done Comments Pre-Diabetes and Diabetes Screening 1981 HPV VACCINES (1 - Male 3-dose series) 02/03/1996 DTAP/TDAP/TD VACCINES (1 - Tdap) 02/03/2000 HEPATITIS B VACCINES (1 of 3 - 19+ 3-dose series) 10/1999 INFLUENZA VACCINE (#1) 2025 Goals Goal Patient Goal Type Associated Problems Recent Progress Patient-Stated? Author Autogenerat ed Goal Care Plan Autogenerated Problem No Chinyere, Nohemy Leonor Autogenerat ed Goal Care Plan Autogenerated Problem No Chinyere, Nohemy Leonor Additional Health Concerns Active Problems Noted Date Diagnosed Date Autogenerated Problem 02/04/2025 Autogenerated Problem 02/04/2025 Insurance [facility] [address] [employer] MEDICAID
[2025-02-17 08:54] VITALS: BP 137/103; PULSE 82; RESP 16; TEMP 36.4; O2SAT 100
[2025-02-17 09:07] LABS: Hematocrit 44.9 % (37-53); Hemoglobin 15.60 g/dL (11.27-16.99); Mean Corpuscular HGB Conc 34.7 g/dL (30-55); Mean Corpuscular Hemoglobin 30.3 pg (27-33); Mean Corpuscular Volume 87.2 fl (82-101); Nucleated Red Blood Cells % 0 %; Platelet Count 206 10^3/cmm (157-399); Red Blood Count 5.15 10^6/uL (3.85-5.65); White Blood Count 5.43 10^3/uL (3.29-11.43)
--- NOTE | 2025-02-17 09:23 | ED_ITS ---
HPI - General Adult 2 General: Chief complaint: General Medical Stated complaint: hemroide issues Time Seen by Provider: 02/17/25 08:37 History of Present Illness: 45-year-old male presents emergency room complaining of a hemorrhoid that has been irritated inflamed for the last 2 days. Denies any active bleeding is been very tender. He was seen by his primary care doctor this morning evidently he went to the Surgery Department asking to be seen and then presented to the emergency room. No active bleeding at this time he is not on any anticoagulants. Associated symptoms: Deny chest pain, dyspnea or rash Related Data Home Medications ?Medication ?Instructions ?Recorded ?Confirmed pantoprazole 40 mg tablet,delayed 40 mg PO QPM 5 02/17/25 release (Protonix) Previous Rx's ?Medication ?Instructions ?Recorded dicyclomine 20 mg tablet 20 mg PO QID PRN abdominal p ain 12/05/24 #10 tabs Allergies Allergy/AdvReac Type Severity Reaction Status Date / Time amoxicillin (From Augmentin) Allergy anaphylacti Verified 02/17/25 07:57 c clavulanic acid (From Allergy anaphylacti Verified 02/17/25 07:57 Augmentin) c rice Allergy ADR-Nausea Verified 02/17/25 07:57 gabapentin AdvReac ADR-Seizure Verified 02/17/25 07:57 Review of Systems 2 Const: Denies: fever(s) or chills Card: Denies: chest pain Resp: Denies: dyspnea GI: Denies: abdominal pain : Denies: dysuria, urinary frequency or urinary urgency Musc: Denies: neck pain or back pain Skin/Breast: Denies: rash PFS ED 2 PFSH: Medical History (Updated 02/17/25 @ 10:01 by Andre Cordero DO) Thrombosed hemorrhoids Cyst Lipoma of back Ruptured ear drum Costochondritis, acute Osteoarthritis involving multiple joints on both sides of body Lumbar disc disease History of skin cancer last skin survey 4-5 yrs ago Allergic rhinitis due to allergen Family history of skin cancer Family history of prostate cancer in father Nocturnal cough URI with cough and congestion Surgical History H/O excision of mass on scalp x2 Family History Mother Cancer carcinoma Father Cancer skin cancer Grandfather Cancer pancreatic Social History Smoking and tobacco/nicotine status: never used tobacco/nicotine Physical Exam 2 Const: COMMON NORMALS: no acute distress GENERAL APPEARANCE: cooperative and comfortable ORIENTATION/CONSCIOUSNESS: Yes awake, Yes oriented to person, Yes oriented to place and Yes oriented to time HENMT: COMMON NORMALS: normocephalic, atraumatic and hearing grossly normal bilaterally HEAD & SCALP: normocephalic and atraumatic Back/Pelvis: OTHER: On exam thrombosed mildly inflamed external hemorrhoid at 3 o'clock position no active bleeding no erosion Neuro: SENSORIUM/ORIENTATION: Yes oriented to person, Yes oriented to place and Yes oriented to time Skin: COMMON NORMALS: no rashes or lesions noted GENERAL SKIN EXAM: no rashes or lesions noted Course 2 Vital Signs: Vital signs: Vital Signs Temperature 97.6 F 02/17/25 08:54 Pulse Rate 82 02/17/25 08:54 Respiratory Rate 16 02/17/25 08:54 Blood Pressure 137/103 02/17/25 08:54 Pulse Oximetry 100 02/17/25 08:54 Oxygen Delivery Me thod Room Air 02/17/25 08:54 MDM - General Adult Medical Decision Making Nonemergent hemorrhoid. Will refer to general surgery for definitive care. We discussed Dr. Haro will see the patient in the office today Lab Data 02/17/25 08:58 Laboratory Results WBC 5.43 10^3/uL (3.29-11.43) 02/17/25 08:58 RBC 5.15 10^6/uL (3.85-5.65) 02/17/25 08:58 Hgb 15.60 g/dL (11.27-16.99) 02/17/25 08:58 Hct 44.9 % (37-53) 02/17/25 08:58 MCV 87.2 fl (82-101) 02/17/25 08:58 MCH 30.3 pg (27-33) 02/17/25 08:58 MCHC 34.7 g/dL (30-55) 02/17/25 08:58 RDW 13.2 % (12.1-15.1) 02/17/25 08:58 Plt Count 206 10^3/cmm (157-399) 02/17/25 08:58 MPV 10.1 fL (7.4-10.4) 02/17/25 08:58 Neut % (Auto) 46.0 % 02/17/25 08:58 Lymph % (Auto) 33.1 % 02/17/25 08:58 [place] % (Auto) 8.8 % 02/17/25 08:58 Eos % (Auto) 11.2 % 02/17/25 08:58 Baso % (Auto) 0.9 % 02/17/25 08:58 Neut # (Auto) 2.49 10^3/uL (1.8-7.7) 02/17/25 08:58 Lymph # (Auto) 1.8 10^3/uL (0.8-4.8) 02/17/25 08:58 [place] # (Auto) 0.5 10^3/uL (0.2-0.9) 02/17/25 08:58 Eos # (Auto) 0.6 10^3/uL (0.0-0.8) 02/17/25 08:58 Baso # (Auto) 0.1 10^3/uL (0.0-0.1) 02/17/25 08:58 Nucleated RBC % (auto) 0 % 02/17/25 08:58 Nucleated RBCs # 0.0 /100WBC 02/17/25 08:58 No radiology studies performed this visit Discharge Plan Discharge Patient Disposition: Home Clinical Impression: Hemorrhoids, external, thrombosed Condition: Stable Prescriptions: No Action pantoprazole [Protonix] 40 mg tablet,delayed release (DR/EC) 40 mg PO QPM Rx Instructions: take daily x 6 weeks then stop dicyclomine 20 mg tablet 20 mg PO QID PRN (Reason: abdominal pain) Qty: 10 0RF Discharge Orders: Discharge ED (Routine); Ordered 02/17/25 Ordered By: Andre Cordero Referrals: Baldev Reaves MD [Primary Care Provider, Family Practice] Discharge Diet: Usual diet Discharge Activity: Increase activity as tolerated Patient Instructions: Thrombosed Hemorrhoid (ED), Opioid Safety, Pain Management, Patient Portal & Nohemi Instructions Activity Restrictions/Additional Instructions: [facility] It is very important that you follow up as instructed or that you return to the Emergency Department should you have concerns or if your condition changes or worsens in any way. Thrombosed hemorrhoid. Discussed with surgeon on-call who will see in the office today and discuss definitive care. Print Language: Bulgarian Coding Level of Care Code ED Natural Resource Economist for Titi Deng
== END 2025-02-17 10:13 | disposition home or self-care (01) ==
PROVIDERS: Emergency Provider Family Medicine; PCP Family Medicine
DX: K64.5 Perianal venous thrombosis (principal)
CPT/HCPCS: 36415; 85025; 99283

== ENCOUNTER 2025-02-18 11:33 | Day surgery (SDC) | payer BC, MEDICAID, SELFPAY ==
[2025-02-18] VITALS (9 sets, daily range): BP systolic 127–147; BP diastolic 81–99; PULSE 72–97; RESP 16–17; TEMP 36.2–36.3; O2SAT 94–97; BMI 29.7
--- NOTE | 2025-02-18 12:41 | ANES.PREANE2 ---
Pre-Anesthetic Assessment Height/Weight: Height 1.88 m Weight 105.233 kg O2 Del Method Room Air 02/18/25 11:46 Operation Date: 02/18/25 13:10 Proposed Procedures p Exam Under Anesthesia 56504, 08812, 40657, K64.5(Not Applicable) - Derek Haro MD s Hemorrhoidectomy(Not Applicable) - Derek Haro MD Familial anesthetic complications: None Was Beta Cindy taken within 24 hours: N/A Was Clonidine taken within 24 hours: N/A Last intake: Intake Last Liquid Date 02/18/25 Last Liquid Time 05:00 Last Solid Date 02/17/25 Last Solid Time 20:00 Social No alcohol and No tobacco Exam alert, oriented x 3, clear to auscultation bilaterally and regular rate & rhythm Airway Mallampati: Class II Dentition: full GI Gastroesophageal Reflux Disease eosinophilic esophagitis Anesthetic Plan ASA status: 2 Anesthesia: General Risk of > 500 ml blood loss (7ml/kg in children): No Medications/Allergies Home Medications ?Medication ?Instructions ?Recorded ?Confirmed ?Last Taken ?Type pantoprazole 40 mg tablet,delayed 40 mg PO QPM 12/05/24 02/17/25 02/16/25 History release (Protonix) hydrocortisone 1 % topical cream 1 applic topical QID PRN skin 02/17/25 02/18/25 02/17/25 Rx (Preparation H Hydrocortisone) irritation 30 days #454 grams sucralfate 1 gram tablet 1 g PO DAILY 02/17/25 02/17/25 02/16/25 History Allergies Allergy/AdvReac Type Severity Reaction Status Date / Time clavulanic acid (From Allergy anaphylacti Verified 02/18/25 12:32 Augmentin) c vancomycin Allergy ADR/ALGY-Fl Verified 02/18/25 12:32 ushing amoxicillin (From Augmentin) AdvReac anaphylacti Verified 02/18/25 12:32 c gabapentin AdvReac ADR-Seizure Verified 02/18/25 12:32 [facility] Anesthesia Medical History Thrombosed hemorrhoids Cyst Lipoma of back Ruptured ear drum Costochondritis, acute Osteoarthritis involving multiple joints on both sides of body Lumbar disc disease History of skin cancer last skin survey 4-5 yrs ago Allergic rhinitis due to allergen Family history of skin cancer Family history of prostate cancer in father Nocturnal cough URI with cough and congestion Surgical History H/O excision of mass on scalp x2 Family History Mother Cancer carcinoma Father Cancer skin cancer Grandfather Cancer pancreatic Social History Smoking and tobacco/nicotine status: never used tobacco/nicotine
--- NOTE | 2025-02-18 12:55 | W.PM.OPSUD ---
Surgery/Procedure H&P Update DATE OF PROCEDURE: February 18, 2025 DATE H&P PERFORMED: 02/17/25 H&P UPDATE INFORMATION: I have reviewed H&P completed within last 30 days, I have examined patient prior to procedure and No changes to prior documentation PLANNED PROCEDURE: Operation Date: 02/18/25 13:10 Proposed Procedures p Exam Under Anesthesia 25974, 67232, 11525, K64.5(Not Applicable) - Derek Haro MD s Hemorrhoidectomy(Not Applicable) - Derek Haro MD
--- NOTE | 2025-02-18 13:49 | PM.OP ---
Operative Report Date of procedure: February 18, 2025 Pre-op diagnosis: External hemorrhoid Post-op diagnosis: same Post-op findings: Prominent external hemorrhoid right posterior column Procedure done: Exam under anesthesia of the rectum, hemorrhoidectomy right posterior column Implants: N/A Specimens removed/disposition: Hemorrhoid sent to pathology Pathology: Hemorrhoid sent to pathology Surgeon: Derek Haro MD Thermal Cutting Tracer Machine Operator: N/A Anesthesia: General Estimated blood loss (mL): 10 Complications: N/A Findings: Prominent external hemorrhoid right posterior column Condition: stable Disposition: same day Brief History: 45-year-old male who presented with painful hemorrhoids. Discussed risk and benefits and patient agreed to proceed with exam under anesthesia of the rectum, possible hemorrhoidectomy. Procedure: Patient was brought in to the operating room. General anesthesia was induced. Patient positioned prone. Upper and lower extremities appropriately padded. The perineum was prepped with betadine and draped. A timeout was performed. All present were in agreement. Retractor was used to examine the anus and patient had sizable hemorrhoids of the right posterior column. The largest pillar was the right posterior column, which I proceeded to excise. The exterior most edge of the hemorrhoid was grabbed using an Allis clamp. Electrocautery was used to incise the anoderm and subsequently to dissect the hemorrhoid pack off the muscle layer. Dissection proceeded cephalad until the pedicle of the hemorrhoid was encountered. At this point, a 3-0 chromic stick-tie was used to ligate the hemorrhoidal pedicle. The specimen was passed off and sent to pathology. The 3-0 chromic was ran distally in order to close the mucosal defect as well as the anoderm. There was minimal bleeding. Thrombin-soaked Gelfoam was then placed into the anus. Fluffs were applied on top and these were secured using mesh underwear. Patient tolerated procedure well.
[2025-02-18] MEDS: thrombin 5,000 unit SDV 5000 UNIT XX (13:50)
[2025-02-18] MEDS: BUPivacaine 0.25% INJ 10 mL INJECTION (14:08)
--- NOTE | 2025-02-18 15:08 | PM.MISC ---
Miscellaneous Note Note: Attempted to update . No answer. Latisha Varela ()
--- NOTE | 2025-02-18 15:37 | ANE.PACU2 ---
Inpatient post-anesthesia follow up: Airway intact: Yes Vital signs: Temperature 97.1 F Pulse Rate 72 Respiratory Rate 17 Blood Pressure 129/89 Pulse Oximetry 97 Oxygen Delivery Me thod Room Air Oxygen Flow Rate Fraction of Inspir ed Oxygen Hydration adequate: Yes Nausea and vomiting: No Pain level: 1 Mental status: Baseline
== END 2025-02-18 15:20 | disposition home or self-care (01) ==
PROVIDERS: PCP Family Medicine Adult Medicine; Visit Provider Student in an Organized Health Care Education/Training Program
PROC: (CPT 46250; principal; 2025-02-18 13:00)
PROC: (CPT 46250; 2025-02-18 13:00)
DX: K64.4 Residual hemorrhoidal skin tags (principal); K21.9 Gastro-esophageal reflux disease without esophagitis
CPT/HCPCS: 46250; 88304; A4216; J0131; J1100; J1885; J2250; J2405; J2704; J3010; J3490; J7030; J9999

== ENCOUNTER → 2025-06-10 14:49 | Outpatient (BNVA) | payer MEDICAID, SELFPAY | PROVIDERS: PCP Family Medicine; Visit Provider Orthopaedic Surgery | DX: M54.9 Dorsalgia, unspecified (principal); Z98.1 Arthrodesis status | CPT/HCPCS: 72110 ==